=== PATIENT | male | born 2000 | race African-American/Black ===

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

== ENCOUNTER 2019-06-23 23:09 | Emergency (ER) | payer OTHER, SELFPAY ==
[2019-06-23] MEDS ORDERED: ONDANSETRON 4 MG/2 ML VIAL ONE (23:53)
[2019-06-23] MEDS ORDERED: MORPHINE 4 MG/ML SYR ONE (23:53)
--- NOTE | 2019-06-24 00:38 | EDPHYS ---
Physician Documentation [facility] Name: Fredis Buck Age: 18 yrs Sex: Male : 2000 Arrival Date: 06/23/2019 Time: 23:11 Bed 18 Private MD: ED Physician Liam Snyder HPI: 06/22 23:37 This 18 yrs old Black Male presents to ER via Ambulatory with complaints of Shoulder pm1 Injury. 23:37 The patient or guardian complains of pain, that is acute. right shoulder. Context: The pm1 problem was sustained at a sports field or court, resulted from stretching out his arm and bumping into another player, The patient notes a deformity. Onset: The symptoms/episode began/occurred just prior to arrival. Modifying factors: the symptoms are alleviated by nothing. The symptoms are aggravated by nothing. Associated signs and symptoms: Pertinent negatives: Numbness in right arm tingling. Severity of symptoms: in the emergency department the symptoms are unchanged. Treatment prior to arrival includes: no previous treatment. The patient has experienced a previous episode, left shoulder. It is unknown whether or not the patient has recently seen a physician. Historical: - Allergies: 23:25 No Known Allergies; ea - Home Meds: 23:25 None [Active]; ea - PMHx: 23:25 None; ea - PSHx: 23:25 Hernia repair; ea - Immunization history:: Adult Immunizations up to date. - Social history:: Smoking status: Patient denies any tobacco usage or history of. ROS: 23:37 Constitutional: Negative for fever, chills, and weight loss, Skin: Negative for injury, pm1 rash, and discoloration. 23:37 Neuro: Negative for headache, weakness, numbness, tingling, and seizure. 23:37 MS/extremity: Positive for deformity, pain, of the right shoulder. 23:37 All other systems are negative. Exam: 23:37 Constitutional: This is a well developed, well nourished patient who is awake, alert, pm1 and in no acute distress. Head/Face: Normocephalic, atraumatic. Chest/axilla: Normal chest wall appearance and motion. Nontender with no deformity. No lesions are appreciated. Cardiovascular: Regular rate and rhythm with a normal S1 and S2. No gallops, murmurs, or rubs. Normal PMI, no JVD. No pulse deficits. Respiratory: Lungs have equal breath sounds bilaterally, clear to auscultation and percussion. No rales, rhonchi or wheezes noted. No increased work of breathing, no retractions or nasal flaring. Abdomen/GI: Soft, non-tender, with normal bowel sounds. No distension or tympany. No guarding or rebound. No evidence of tenderness throughout. Back: No spinal tenderness. No costovertebral tenderness. Full range of motion. Skin: Warm, dry with normal turgor. Normal color with no rashes, no lesions, and no evidence of cellulitis. 23:37 Musculoskeletal/extremity: Extremities: grossly normal except: noted in the right shoulder: obvious dislocation, Pulses: noted to be 2+ in the right radial artery. Vital Signs: 23:19 BP 135 / 71; Pulse 79; Resp 18; Temp 98.7; Pulse Ox 97% ; Weight 61.23 kg; Height 5 ft. ea 6 in. (167.64 cm); Pain 8/10; 06/23 00:00 BP 125 / 69; Pulse 84; Resp 17; Pulse Ox 98% ; ah 03 23:19 Body Mass Index 21.79 (61.23 kg, 167.64 cm) ea Procedures: 00:33 Reduction: of the right shoulder, using Scapular manipulation with patient prone, pm1 Immobilized with shoulder immobilizer. Patient tolerated well. Post reduction film - reveals normal alignment. MDM: 06/22 23:34 Patient medically screened. pm1 06/23 00:33 Data reviewed: vital signs. Data interpreted: Pulse oximetry: on room air is 97 %. pm1 Interpretation: normal. 00:33 Counseling: I had a detailed discussion with the patient and/or guardian regarding: the pm1 historical points, exam findings, and any diagnostic results supporting the discharge/admit diagnosis, radiology results, the need for outpatient follow up, a orthopedic surgeon, to return to the emergency department if symptoms worsen or persist or if there are any questions or concerns that arise at home. 06/22 23:37 Order name: Shoulder Right (2 View) XRAY pm1 06/23 00:27 Order name: Shoulder (1 View) XRAY pm1 06/22 23:37 Order name: IV Saline Lock; Complete Time: 00:03 pm1 06/23 00:28 Order name: Sling: ezra agee; Complete Time: 00:54 pm1 Administered Medications: 00:02 Drug: morphine 2 mg Route: IVP; Site: left antecubital; mg2 00:54 Follow up: Response: No adverse reaction; Pain is decreased; RASS: Alert and Calm (0) ea 00:02 Drug: Zofran (Ondansetron) 4 mg Route: IVP; Site: left antecubital; mg2 00:54 Follow up: Response: No adverse reaction ea Disposition: 01:27 Co-signature as Attending Physician, Liam Snyder MD. pkjill Disposition: 06/24/19 00:36 Discharged to Home. Impression: Unspecified dislocation of right shoulder joint. - Condition is Stable. - Discharge Instructions: Shoulder Dislocation, How to Use a Shoulder Immobilizer. - Medication Reconciliation Form, Thank You Letter, Antibiotic Education, Prescription Opioid Use form. - Follow up: Emergency Department; When: As needed; Reason: Worsening of condition. Follow up: Private Physician; When: 2 - 3 days; Reason: Recheck today's complaints, Continuance of care, Re-evaluation by your physician. - Problem is new. - Symptoms have improved. Signatures: Dispatcher [employer] EDMS Liam Snyder MD MD pkl Nuno Cunha, BI TESTER BI TESTER pm1 Danica Reyes RN RN ea Gardose, Michele, RN RN mg2 Corrections: (The following items were deleted from the chart) 00:55 00:36 06/24/2019 00:36 Discharged to Home. Impression: Unspecified dislocation of right ea shoulder joint. Condition is Stable. Forms are Medication Reconciliation Form, Thank You Letter, Antibiotic Education, Prescription Opioid Use. Follow up: Emergency Department; When: As needed; Reason: Worsening of condition. Follow up: Private Physician; When: 2 - 3 days; Reason: Recheck today's complaints, Continuance of care, Re-evaluation by your physician. Problem is new. Symptoms have improved. pm1
--- NOTE | 2019-06-24 00:38 | ER ---
Nurse's Notes [facility] Name: Fredis Buck Age: 18 yrs Sex: Male : 2000 Arrival Date: 06/23/2019 Time: 23:11 Bed 18 Private MD: Diagnosis: Unspecified dislocation of right shoulder joint Presentation: 06/22 23:19 Chief complaint: Patient states: Reports he was playing basketball and he over extended ea his right shoulder. Pt reports his left shoulder has popped out of place before but he was able to "pop it back in place". Coronavirus screen: Patient denies fever greater than 100.4F, cough, shortness of breath, or difficulty breathing. Ebola Screen: No symptoms or risks identified at this time. Initial Sepsis Screen: Does the patient meet any 2 criteria? No. Patient's initial sepsis screen is negative. Does the patient have a suspected source of infection? No. Patient's initial sepsis screen is negative. Risk Assessment: Do you want to hurt yourself or someone else? Patient reports no desire to harm self or others. 23:19 Method Of Arrival: Ambulatory ea 23:19 Acuity: RICHELLE 3 ea Historical: - Allergies: 23:25 No Known Allergies; ea - Home Meds: 23:25 None [Active]; ea - PMHx: 23:25 None; ea - PSHx: 23:25 Hernia repair; ea - Immunization history:: Adult Immunizations up to date. - Social history:: Smoking status: Patient denies any tobacco usage or history of. Screenin:23 Abuse screen: Denies threats or abuse. Nutritional screening: No deficits noted. ea Tuberculosis screening: No symptoms or risk factors identified. Fall Risk None identified. Assessment: 23:26 General: Appears uncomfortable, Behavior is calm, cooperative, appropriate for age. ea Pain: Complains of pain in right arm. Neuro: Level of Consciousness is awake, alert, obeys commands, Oriented to person, place, time, situation. Cardiovascular: Patient's skin is warm and dry. Respiratory: Airway is patent Respiratory effort is even, unlabored, Respiratory pattern is regular, symmetrical. Derm: Skin is pink, warm \\T\\ dry. Musculoskeletal: Range of motion: limited in right shoulder. 06/23 00:36 Reassessment: Nuno COLON in room to manipulate shoulder back in place. Pt tolerated ah very well. No distress noted Patient states feeling better. 00:54 Reassessment: Patient and/or family updated on plan of care and expected duration. Pain ea level reassessed. Patient is alert, oriented x 3, equal unlabored respirations, skin warm/dry/pink. Discharge instruction given to patient, verbalized the understanding of instruction. Pt left ED ambulatory accompanied by family. Vital Signs: 06/22 23:19 BP 135 / 71; Pulse 79; Resp 18; Temp 98.7; Pulse Ox 97% ; Weight 61.23 kg; Height 5 ft. ea 6 in. (167.64 cm); Pain 8/10; 06/23 00:00 BP 125 / 69; Pulse 84; Resp 17; Pulse Ox 98% ; ah 06/22 23:19 Body Mass Index 21.79 (61.23 kg, 167.64 cm) ea ED Course: 06/22 23:11 Patient arrived in ED. cf2 23:23 Triage completed. ea 23:24 Patient has correct armband on for positive identification. Bed in low position. ea 23:24 Arm band placed on right wrist. Patient placed in an exam room, on a stretcher, on ea pulse oximetry. 23:34 Nuno Cunha NP is PHCP. pm1 23:34 Liam Snyder MD is Attending Physician. pm1 23:58 Inserted saline lock: 20 gauge in left antecubital area, using aseptic technique. mg2 06/23 00:10 Nurse Practitioner and/or Physician Party Coordinator to see patient. ah 00:47 Margie Oliva, RN is Primary Nurse. ah 00:47 No provider procedures requiring assistance completed. IV discontinued, intact, ah bleeding controlled, No redness/swelling at site. Pressure dressing applied. 00:59 Shoulder Right (2 View) XRAY In Process Unspecified. EDMS 01:00 Shoulder (1 View) XRAY In Process Unspecified. EDMS Administered Medications: 00:02 Drug: morphine 2 mg Route: IVP; Site: left antecubital; mg2 00:54 Follow up: Response: No adverse reaction; Pain is decreased; RASS: Alert and Calm (0) ea 00:02 Drug: Zofran (Ondansetron) 4 mg Route: IVP; Site: left antecubital; mg2 00:54 Follow up: Response: No adverse reaction ea Outcome: 00:36 Discharge ordered by . pm1 00:55 Discharged to home ambulatory. ea 00:55 Condition: stable 00:55 Discharge instructions given to patient, Instructed on discharge instructions, follow up and referral plans. Demonstrated understanding of instructions, follow-up care. 00:55 Patient left the ED. ea Signatures: Dispatcher [employer] EDMS Nuno Cunha NP [employer] CONSULTANT pm1 Danica Reyes RN RN ea Gardose, Michele RN MIKAYLA [facility] [place] 2 Margie Oliva RN MIKAYLA
[2019-06-24 01:36] VITALS: BP 125/69; O2SAT 98
[2019-06-24 01:38] VITALS: TEMP 98.7
--- NOTE | 2019-06-24 09:05 | RAD REPORT ---
EXAM DESCRIPTION: Shoulder Right 2 View - 06/24/2019 12:58 am CLINICAL HISTORY: DEFORMITY COMPARISON: Shoulder Right 2 View dated 05/26/2018 TECHNIQUE: Internal and external rotation views of the right shoulder were obtained. FINDINGS: Dislocation of the proximal right humerus is present medial and inferior to the glenoid. T his is typical anterior dislocation positioning. No fracture is seen. No clavicle fracture or AC join t separation. IMPRESSION: Anterior dislocation of the right humeral head without identifiable fracture.
--- NOTE | 2019-06-24 09:06 | RAD REPORT ---
EXAM DESCRIPTION: RAD - Shoulder 1 View - 06/24/2019 12:59 am FINDINGS: Internal and external rotation views obtained following reduction maneuvers. Humeral head has been reduced to anatomic position. No fracture finding. AC joint remains normal in appearance.
== END 2019-06-24 00:55 | disposition home or self-care (01) ==
LOC: ER 23:09
DX: S43.004A Unspecified dislocation of right shoulder joint, initial encounter (principal); W51.XXXA Accidental striking against or bumped into by another person, initial encounter; Y93.67 Activity, basketball; Y92.310 Basketball court as the place of occurrence of the external cause
CPT/HCPCS: 73020; 96374; 96375; 99284; J2405

== ENCOUNTER 2020-01-03 21:49 | Emergency (ER) | payer SELFPAY ==
[2020-01-03] MEDS ORDERED: KETOROLAC 30 MG/ML INJ ONE (23:04)
--- NOTE | 2020-01-03 23:48 | ER ---
Nurse's Notes [facility] Name: Fredis Buck Age: 19 yrs Sex: Male : 2000 Arrival Date: 01/03/2020 Time: 21:52 Bed 14 Private MD: Diagnosis: Epididymitis Presentation: 01/02 21:57 Chief complaint: Patient states: L groin pain x 1 week. L inguinal pain and swelling. ca1 Denies scrotal pain and swelling. Denies urinary symptoms. Denies injury. Coronavirus screen: Client denies travel out of the [place] in the last 14 days. At this time, the client does not indicate any symptoms associated with coronavirus-19. Ebola Screen: Patient negative for fever greater than or equal to 101.5 degrees Fahrenheit, and additional compatible Ebola Virus Disease symptoms Patient denies exposure to infectious person. Patient denies travel to an Ebola-affected area in the 21 days before illness onset. No symptoms or risks identified at this time. Initial Sepsis Screen: Does the patient meet any 2 criteria? No. Patient's initial sepsis screen is negative. Does the patient have a suspected source of infection? No. Patient's initial sepsis screen is negative. Risk Assessment: Do you want to hurt yourself or someone else? Patient reports no desire to harm self or others. Onset of symptoms was January 03, 2020. 21:57 Method Of Arrival: Ambulatory ca1 21:57 Acuity: RICHELLE 4 ca1 Historical: - Allergies: 22:02 No Known Allergies; ca1 - Home Meds: 22:02 None [Active]; ca1 - PMHx: 22:02 None; ca1 - PSHx: 22:02 None; ca1 - Immunization history:: Adult Immunizations not up to date. - Social history:: Smoking status: Reported history of juuling and/or vaping. Screenin:37 Abuse screen: Denies threats or abuse. Nutritional screening: No deficits noted. jd3 Tuberculosis screening: No symptoms or risk factors identified. Fall Risk Ambulatory Aid- None/Bed Rest/Nurse Assist (0 pts). Gait- Normal/Bed Rest/Wheelchair (0 pts) Mental Status- Oriented to own ability (0 pts). Total Lynn Fall Scale indicates No Risk (0-24 pts). Assessment: 22:05 General: Appears in no apparent distress. uncomfortable, Behavior is calm, cooperative, jd3 appropriate for age. Pain: Complains of pain in groin Quality of pain is described as aching. Neuro: Level of Consciousness is awake, alert, obeys commands, Oriented to person, place, time, situation. Cardiovascular: Capillary refill < 3 seconds Patient's skin is warm and dry. Respiratory: Airway is patent Respiratory effort is even, unlabored, Respiratory pattern is regular, symmetrical, Denies cough, shortness of breath. GI: No signs and/or symptoms were reported involving the gastrointestinal system. : No signs and/or symptoms were reported regarding the genitourinary system. EENT: No signs and/or symptoms were reported regarding the EENT system. Derm: Skin is intact, Skin is dry, Skin is normal, Skin temperature is warm. Musculoskeletal: Circulation, motion, and sensation intact. Range of motion: intact in all extremities. 23:37 Reassessment: Patient appears in no apparent distress at this time. No changes from jd3 previously documented assessment. Patient and/or family updated on plan of care and expected duration. Pain level reassessed. Patient is alert, oriented x 3, equal unlabored respirations, skin warm/dry/pink. 01/03 00:00 Reassessment: Patient and/or family updated on plan of care and expected duration. Pain ea level reassessed. Patient is alert, oriented x 3, equal unlabored respirations, skin warm/dry/pink. Discharge instruction given to patient, verbalized the understanding of instruction. Pt left ED ambulatory tolerating well. Vital Signs: 01/02 21:57 BP 145 / 98; Pulse 85; Resp 16; Temp 98.1(TE); Pulse Ox 98% on R/A; Weight 63.5 kg (R); ca1 Height 5 ft. 6 in. (167.64 cm) (R); Pain 9/10; 23:36 BP 121 / 71; Pulse 94; Resp 17 S; Pulse Ox 97% on R/A; jd3 21:57 Body Mass Index 22.60 (63.50 kg, 167.64 cm) ca1 ED Course: 21:52 Patient arrived in ED. bp1 22:01 Triage completed. ca1 22:02 Arm band placed on right wrist. ca1 22:05 Stepan Orr MD is Attending Physician. [facility] 23:34 Dc, Xavier, RN is Primary Nurse. jd3 23:38 Patient has correct armband on for positive identification. Placed in gown. Bed in low jd3 position. Call light in reach. Side rails up X 1. Adult w/ patient. Pulse ox on. NIBP on. 23:41 Ultrasound completed. Patient tolerated well. Notified ED Physician ramiro. sg3 23:45 US Scrotum Testicles In Process Unspecified. EDMS 23:47 Hollie Summers MD is Referral Physician. [facility] 01/03 00:02 No provider procedures requiring assistance completed. Patient did not have IV access ea during this emergency room visit. Administered Medications: 01/02 22:56 Drug: TORadol 60 mg Route: IM; Site: left gluteus; ll2 01/03 00:01 Follow up: Response: No adverse reaction ll2 01/02 23:51 Drug: Rocephin (cefTRIAXone) 250 mg Route: IM; Site: right gluteus; ea 01/03 00:01 Follow up: Response: No adverse reaction ll2 01/02 23:56 Drug: AZITHromycin 1 grams Route: PO; ea 01/03 00:01 Follow up: Response: No adverse reaction ll2 Outcome: 01/02 23:48 Discharge ordered by . [facility] 01/03 00:03 Discharged to home ambulatory, with family. ea Condition: stable Discharge instructions given to patient, Instructed on discharge instructions, follow up and referral plans. medication usage, Demonstrated understanding of instructions, follow-up care, medications, Prescriptions given X 2. 00:03 Patient left the ED. ea Signatures: Dispatcher [employer] EDCT Danica Reyes RN RN ea Davies, Jonathon, RN RN jd3 Selena Dover sg3 Lyndsey Soto RN RN ca1 Yanci Alex RN RN ll2 Marine Day Maurice, MD MD [facility]
--- NOTE | 2020-01-03 23:48 | EDPHYS ---
Physician Documentation [facility] Name: Fredis Buck Age: 19 yrs Sex: Male : 2000 Arrival Date: 01/03/2020 Time: 21:52 Bed 14 Private MD: ED Physician Stepan Orr HPI: 01/02 22:28 This 19 yrs old Black Male presents to ER via Ambulatory with complaints of Groin Pain. mh7 22:28 The patient presents with scrotal pain, of the left side, without swelling, without mh7 erythema. Onset: The symptoms/episode began/occurred 1 week(s) ago. Modifying factors: The symptoms are alleviated by nothing, the symptoms are aggravated by movement. Associated signs and symptoms: Pertinent negatives: abdominal pain, constipation, diarrhea, dysuria, fever, hematuria, nausea, vomiting. Severity of symptoms: At their worst the symptoms were moderate, yesterday, in the emergency department the symptoms have improved, moderately. Historical: - Allergies: 22:02 No Known Allergies; ca1 - Home Meds: 22:02 None [Active]; ca1 - PMHx: 22:02 None; ca1 - PSHx: 22:02 None; ca1 - Immunization history:: Adult Immunizations not up to date. - Social history:: Smoking status: Reported history of juuling and/or vaping. ROS: 22:28 Constitutional: Negative for fever, chills, and weight loss, Eyes: Negative for injury, mh7 pain, redness, and discharge, ENT: Negative for injury, pain, and discharge, Neck: Negative for injury, pain, and swelling, Cardiovascular: Negative for chest pain, palpitations, and edema, Respiratory: Negative for shortness of breath, cough, wheezing, and pleuritic chest pain, Abdomen/GI: Negative for abdominal pain, nausea, vomiting, diarrhea, and constipation, Back: Negative for injury and pain, MS/Extremity: Negative for injury and deformity, Skin: Negative for injury, rash, and discoloration, Neuro: Negative for headache, weakness, numbness, tingling, and seizure, Psych: Negative for depression, anxiety, suicide ideation, homicidal ideation, and hallucinations, Allergy/Immunology: Negative for hives, rash, and allergies, Endocrine: Negative for neck swelling, polydipsia, polyuria, polyphagia, and marked weight changes, Hematologic/Lymphatic: Negative for swollen nodes, abnormal bleeding, and unusual bruising. Exam: 22:28 Constitutional: This is a well developed, well nourished patient who is awake, alert, mh7 and in no acute distress. Head/Face: Normocephalic, atraumatic. Eyes: Pupils equal round and reactive to light, extra-ocular motions intact. Lids and lashes normal. Conjunctiva and sclera are non-icteric and not injected. Cornea within normal limits. Periorbital areas with no swelling, redness, or edema. Neck: Trachea midline, no thyromegaly or masses palpated, and no cervical lymphadenopathy. Supple, full range of motion without nuchal rigidity, or vertebral point tenderness. No Meningismus. Chest/axilla: Normal chest wall appearance and motion. Nontender with no deformity. No lesions are appreciated. Cardiovascular: Regular rate and rhythm with a normal S1 and S2. No gallops, murmurs, or rubs. Normal PMI, no JVD. No pulse deficits. Respiratory: Lungs have equal breath sounds bilaterally, clear to auscultation and percussion. No rales, rhonchi or wheezes noted. No increased work of breathing, no retractions or nasal flaring. Abdomen/GI: Soft, non-tender, with normal bowel sounds. No distension or tympany. No guarding or rebound. No evidence of tenderness throughout. Back: No spinal tenderness. No costovertebral tenderness. Full range of motion. Skin: Warm, dry with normal turgor. Normal color with no rashes, no lesions, and no evidence of cellulitis. MS/ Extremity: Pulses equal, no cyanosis. Neurovascular intact. Full, normal range of motion. Neuro: Awake and alert, GCS 15, oriented to person, place, time, and situation. Cranial nerves II-XII grossly intact. Motor strength 5/5 in all extremities. Sensory grossly intact. Cerebellar exam normal. Normal gait. Psych: Awake, alert, with orientation to person, place and time. Behavior, mood, and affect are within normal limits. 22:28 : 22:55 : CVA tenderness, is absent, Male external genitalia: Circumcision noted. swelling: mh7 of the left testicle is noted, that is mild, tenderness, of the left testicle is noted, of the epididymis area, that is mild, Bladder: is normal, Rectal exam: is refused by patient or guardian. Vital Signs: 21:57 BP 145 / 98; Pulse 85; Resp 16; Temp 98.1(TE); Pulse Ox 98% on R/A; Weight 63.5 kg (R); ca1 Height 5 ft. 6 in. (167.64 cm) (R); Pain 9/10; 23:36 BP 121 / 71; Pulse 94; Resp 17 S; Pulse Ox 97% on R/A; jd3 21:57 Body Mass Index 22.60 (63.50 kg, 167.64 cm) ca1 MDM: 22:17 Patient medically screened. [facility] 23:45 Differential diagnosis: UTI, urethritis, Epididymitis, orchitis, testicular torsion. [facility] Data reviewed: vital signs, nurses notes, lab test result(s), urinalysis, radiologic studies, ultrasound. Data interpreted: Pulse oximetry: on room air is 97 %. Interpretation: normal. Counseling: I had a detailed discussion with the patient and/or guardian regarding: the historical points, exam findings, and any diagnostic results supporting the discharge/admit diagnosis, lab results, radiology results, the need for outpatient follow up, a urologist, to return to the emergency department if symptoms worsen or persist or if there are any questions or concerns that arise at home. Response to treatment: the patient's symptoms have markedly improved after treatment. 01/02 23:50 Order name: Urine Culture [facility] 01/02 23:50 Order name: Gc Culture [facility] 01/02 22:18 Order name: US Scrotum Testicles [facility] 01/02 22:18 Order name: Urine Dipstick-Ancillary (obtain specimen); Complete Time: 23:20 [facility] Administered Medications: 22:56 Drug: TORadol 60 mg Route: IM; Site: left gluteus; ll2 01/03 00:01 Follow up: Response: No adverse reaction ll2 01/02 23:51 Drug: Rocephin (cefTRIAXone) 250 mg Route: IM; Site: right gluteus; ea 01/03 00:01 Follow up: Response: No adverse reaction ll2 01/02 23:56 Drug: AZITHromycin 1 grams Route: PO; ea 01/03 00:01 Follow up: Response: No adverse reaction 2 Disposition: 01/03/20 23:48 Discharged to Home. Impression: Epididymitis. - Condition is Stable. - Discharge Instructions: Epididymitis. - Prescriptions for Ibuprofen 600 mg Oral Tablet - take 1 tablet by ORAL route every 8 hours As needed take with food; 15 tablet. Cipro 500 mg Oral Tablet - take 1 tablet by ORAL route every 12 hours for 7 days; 14 tablet. - Medication Reconciliation Form, Thank You Letter, Antibiotic Education, Prescription Opioid Use form. - Follow up: Hollie Summers MD; When: 1 - 2 days; Reason: Worsening of condition, Recheck today's complaints. - Problem is new. - Symptoms have improved. Signatures: Dispatcher [employer] EDMS Danica Reyes RN Lyndsey Sherman ea RN RN Yanci Ryan RN RN 2 Stepan Orr MD MD mh7 Corrections: (The following items were deleted from the chart) 00:03 01/02 23:48 01/03/2020 23:48 Discharged to Home. Impression: Epididymitis. Condition is ea Stable. Forms are Medication Reconciliation Form, Thank You Letter, Antibiotic Education, Prescription Opioid Use. Follow up: Hollie Summers; When: 1 - 2 days; Reason: Worsening of condition, Recheck today's complaints. Problem is new. Symptoms have improved. mh7
[2020-01-04] MEDS ORDERED: AZITHROMYCIN 1 GM PACKET ONE (00:01)
[2020-01-04] MEDS ORDERED: CEFTRIAXONE 250 MG/VIAL ONE (00:01)
[2020-01-04 00:29] VITALS: TEMP 98.1
[2020-01-04 00:30] VITALS: BP 121/71; O2SAT 97
--- NOTE | 2020-01-04 11:34 | RAD REPORT ---
EXAM DESCRIPTION: US - Scrotum Testicles - 01/03/2020 11:45 pm CLINICAL HISTORY: PAIN Left-sided testicular pain COMPARISON: No comparisons FINDINGS: The right testicle 3.8 x 2.5 x 1.9 cm. No intratesticular masses or evidence of testicular torsion. The left testicle 3.0 x 2.4 x 2.3 cm. No intratesticular masses or evidence of testicular torsion. The left epididymis appears enlarged with increased blood flow. Small amount of fluid is seen in the scrotal sac. IMPRESSION: No intratesticular mass or evidence of testicular torsion. Left-sided epididymitis.
== END 2020-01-04 00:03 | disposition home or self-care (01) ==
LOC: ER 21:49
DX: N45.1 Epididymitis (principal); Z87.891 Personal history of nicotine dependence
CPT/HCPCS: 76870; 87086; 87088; 96372; 99284; J0696

== ENCOUNTER 2020-02-09 12:31 | Emergency (ER) | payer SELFPAY ==
[2020-02-09] MEDS ORDERED: DIAZEPAM 5 MG TABLET ONE (14:05)
[2020-02-09] MEDS ORDERED: MORPHINE 4 MG/ML SYR ONE (14:06)
--- NOTE | 2020-02-09 14:19 | ER ---
Nurse's Notes [facility] Name: Fredis Buck Age: 19 yrs Sex: Male : 2000 Arrival Date: 02/09/2020 Time: 12:32 Bed 3 Private MD: Radha Hodges Diagnosis: Recurrent dislocation, right shoulder Presentation: 02/08 12:42 Chief complaint: Spouse and/or significant other states: GF: he basically cart wheeled ca1 out of bed and popped his R shoulder 45 minutes [employer]. Hx of of R shoulder dislocation. Coronavirus screen: Client denies travel out of the [place] in the last 14 days. At this time, the client does not indicate any symptoms associated with coronavirus-19. Ebola Screen: Patient negative for fever greater than or equal to 101.5 degrees Fahrenheit, and additional compatible Ebola Virus Disease symptoms Patient denies exposure to infectious person. Patient denies travel to an Ebola-affected area in the 21 days before illness onset. No symptoms or risks identified at this time. Initial Sepsis Screen: Does the patient meet any 2 criteria? No. Patient's initial sepsis screen is negative. Does the patient have a suspected source of infection? No. Patient's initial sepsis screen is negative. Risk Assessment: Do you want to hurt yourself or someone else? Patient reports no desire to harm self or others. Onset of symptoms was February 09, 2020. 12:42 Method Of Arrival: Ambulatory ca1 12:42 Acuity: RICHELLE 4 ca1 12:45 Acuity: RICHELLE 3 iw Triage Assessment: 12:45 Injury Description: Deformity sustained to right shoulder. bp 12:47 General: Appears in no apparent distress. uncomfortable, Behavior is calm, cooperative, bp appropriate for age. Pain: Complains of pain in anterior aspect of right shoulder. EENT: No deficits noted. Neuro: No deficits noted. Cardiovascular: No deficits noted. Respiratory: No deficits noted. GI: No signs and/or symptoms were reported involving the gastrointestinal system. : No signs and/or symptoms were reported regarding the genitourinary system. Derm: No deficits noted. Musculoskeletal: Circulation, motion, and sensation intact. Range of motion: limited in right shoulder Bony deformity noted of anterior aspect of right shoulder. Historical: - Allergies: 12:45 No Known Allergies; ca1 - Home Meds: 12:45 None [Active]; ca1 - PMHx: 12:45 None; ca1 - PSHx: 12:45 None; ca1 - Immunization history:: Adult Immunizations up to date, Flu vaccine is not up to date. - Social history:: Smoking status: Patient denies any tobacco usage or history of. Screenin:45 Abuse screen: Denies threats or abuse. Denies injuries from another. Nutritional bp screening: No deficits noted. Tuberculosis screening: No symptoms or risk factors identified. Fall Risk None identified. Assessment: 12:50 General: SEE TRIAGE NOTE. bp 13:45 Reassessment: LMP AT B/S FOR SHOULDER REDUCTION Patient states feeling better. Patient bp states symptoms have improved. 14:44 Reassessment: PT D/C HOME AMBULATORY WITH FAMILY, DX WITH ACUTE SHOULDER DISLOCATION. bp Vital Signs: 12:42 BP 135 / 55; Pulse 57; Resp 16 S; Temp 97.2(TE); Pulse Ox 100% on R/A; Weight 63.5 kg ca1 (R); Height 5 ft. 6 in. (167.64 cm); Pain 9/10; 14:45 BP 127 / 61; Pulse 61; Resp 17; Temp 97.5; Pulse Ox 100% ; bp 12:42 Body Mass Index 22.60 (63.50 kg, 167.64 cm) ca1 ED Course: 12:32 Patient arrived in ED. ag5 12:32 Radha Hodges MD is Private Physician. ag5 12:41 Kanika Aguilar FNP-C is [facility]. snw 12:41 Zak Gastelum MD is Attending Physician. snw 12:44 Triage completed. ca1 12:45 Arm band placed on right wrist. ca1 12:46 Rex De Santiago, MIKAYLA is Primary Nurse. bp 13:13 Shoulder Right (2 View) XRAY In Process Unspecified. EDMS 14:18 Judson Worrell MD is Referral Physician. snw 14:45 Patient has correct armband on for positive identification. Bed in low position. Call bp light in reach. Side rails up X2. Adult w/ patient. 14:45 No provider procedures requiring assistance completed. Patient did not have IV access bp during this emergency room visit. Administered Medications: 13:45 Drug: morphine 4 mg Route: IM; Site: left deltoid; bp 14:46 Follow up: Response: Pain is decreased bp 13:45 Drug: Valium 10 mg Route: PO; bp 14:46 Follow up: Response: Marked relief of symptoms bp Outcome: 14:19 Discharge ordered by MD. mcmullen 14:45 Discharged to home ambulatory, with family. bp 14:45 Condition: stable 14:45 Discharge instructions given to patient, Instructed on discharge instructions, follow up and referral plans. medication usage, Demonstrated understanding of instructions, follow-up care, medications, Prescriptions given X 2. 14:46 Patient left the ED. bp Signatures: Dispatcher [employer] EDMS Kanika Aguilar, OPERATIONS AND MAINTENANCE SPECIALIST-C OPERATIONS AND MAINTENANCE SPECIALIST-Csnw Jazzy Arreguin RN RN iw Peltier, Brian, RN RN bp Acob, Cheryl, RN RN ca1 Gaskin, Ajare ag5
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
--- NOTE | 2020-02-09 14:43 | RAD REPORT ---
EXAM DESCRIPTION: Shoulder Right 2 View - 02/09/2020 1:13 pm CLINICAL HISTORY: PAIN COMPARISON: Shoulder Right 2 View dated 06/23/2019 TECHNIQUE: Internal rotation and scapula Y-views obtained. FINDINGS: Right humeral head is dislocated medial and inferior to the bony glenoid. AC joint is nor mal in appearance. No fracture change identified. IMPRESSION: Right humerus anterior dislocation. No fracture identified.
[2020-02-09 15:24] VITALS: BP 135/55; TEMP 97.2; O2SAT 100
== END 2020-02-09 14:46 | disposition home or self-care (01) ==
LOC: ER 12:31
DX: M24.411 Recurrent dislocation, right shoulder (principal)
CPT/HCPCS: 96372; 99283

== ENCOUNTER 2020-03-13 14:47 | Emergency (ER) | payer SELFPAY ==
--- NOTE | 2020-03-13 16:36 | ER ---
Nurse's Notes [facility] Name: Fredis Buck Age: 19 yrs Sex: Male : 2000 Arrival Date: 03/13/2020 Time: 14:49 Bed 13 Private MD: Diagnosis: Recurrent dislocation, right shoulder Presentation: 03/13 15:51 Chief complaint: Patient states: Right shoulder dislocated while working out about 2 jl7 hours ago. Coronavirus screen: Client denies travel out of the [place] in the last 14 days. At this time, the client does not indicate any symptoms associated with coronavirus-19. Ebola Screen: No symptoms or risks identified at this time. Initial Sepsis Screen: Does the patient meet any 2 criteria? No. Patient's initial sepsis screen is negative. Does the patient have a suspected source of infection? No. Patient's initial sepsis screen is negative. Risk Assessment: Do you want to hurt yourself or someone else? Patient reports no desire to harm self or others. Onset of symptoms was March 13, 2020 at 14:00. Care prior to arrival: None. 15:51 Method Of Arrival: Ambulatory jl7 15:51 Acuity: RICHELLE 4 jl7 Triage Assessment: 15:53 General: Appears in no apparent distress. uncomfortable, Behavior is calm, cooperative, jl7 appropriate for age. Pain: Complains of pain in posterior aspect of right shoulder Pain currently is 8 out of 10 on a pain scale. Historical: - Allergies: 15:53 No Known Allergies; jl7 - Home Meds: 15:53 None [Active]; jl7 - PMHx: 15:53 None; jl7 - PSHx: 15:53 None; jl7 - Immunization history:: Adult Immunizations unknown. - Social history:: Smoking status: Patient denies any tobacco usage or history of. Screenin:02 Abuse screen: Denies threats or abuse. Denies injuries from another. Nutritional zb screening: No deficits noted. Tuberculosis screening: No symptoms or risk factors identified. Fall Risk None identified. Assessment: 15:55 Reassessment: Pt requesting for a provider to pop his shoulder back in without pain so jl7 he doesn't have to wait anymore. ISAIAH Reina assessed pt in triage and explained he could attempt to but cannot medicate with narcotics since we do not have an ER bed to put the pt in. Pt and pt's friend do not want to wait. Placed pt back in lobby and informed of wait time. 16:20 Reassessment: Pt called from lobby, no answer, unable to locate and no answer oh phone jl7 number provided. Charge nurse notified. 16:58 General: Appears in no apparent distress. comfortable, Behavior is calm, cooperative, zb appropriate for age. Pain: Denies pain. Neuro: Level of Consciousness is awake, alert, obeys commands, Oriented to person, place, time, situation. Cardiovascular: Capillary refill < 3 seconds in bilateral fingers Patient's skin is warm and dry. Respiratory: Airway is patent Respiratory effort is even, unlabored, Respiratory pattern is regular, symmetrical. GI: Abdomen is flat, distended. : No signs and/or symptoms were reported regarding the genitourinary system. EENT: Derm: Skin is intact, is healthy with good turgor. Musculoskeletal: Capillary refill < 3 seconds, in bilateral fingers. Range of motion: pt seen by ECP prior to assessment. reported limited ROM to Right shoulder. no discomfort noted at the moment. Vital Signs: 15:51 BP 122 / 67; Pulse 47; Resp 17; Temp 98.1; Pulse Ox 100% ; Weight 68.04 kg; Height 5 jl7 ft. 6 in. (167.64 cm); Pain 8/10; 17:00 BP 118 / 54; Pulse 48; Resp 16; Pulse Ox 99% on R/A; Pain 0/10; zb 15:51 Body Mass Index 24.21 (68.04 kg, 167.64 cm) jl7 ED Course: 14:49 Patient arrived in ED. ag5 15:53 Triage completed. jl7 15:53 Arm band placed on right wrist. jl7 16:35 Remi Anderson MD is Attending Physician. aa5 16:43 Nuno Cunha NP is PHCP. pm1 16:52 Judson Worrell MD is Referral Physician. pm1 17:02 No provider procedures requiring assistance completed. Patient did not have IV access zb during this emergency room visit. 17:03 Patient has correct armband on for positive identification. Bed in low position. Call zb light in reach. Side rails up X 1. 17:03 Shoulder immobilizer applied on right shoulder. zb 17:11 Shoulder Right (2 View) XRAY In Process Unspecified. EDMS 17:13 Jessica Powers, RN is Primary Nurse. zb Administered Medications: No medications were administered Outcome: 16:35 Patient left the ED. aa5 16:52 Discharge ordered by MD. pm1 17:13 Discharged to home ambulatory, with friend. zb 17:13 Condition: stable 17:13 Discharge instructions given to patient, Instructed on discharge instructions, follow up and referral plans. medication usage, Demonstrated understanding of instructions, follow-up care, sling usage 17:15 Patient left the ED. zb Signatures: Dispatcher [employer] EDKY Helen Jeronimo, RN RN aa5 Nuno Cunha, BRUSH TRIMMING MACHINE SETTER BRUSH TRIMMING MACHINE SETTER pm1 Lilo Cunningham RN RN jl7 Memo Knutson ag5 Jessica Powers, MIKAYLA RN zb Corrections: (The following items were deleted from the chart) 17:11 16:48 Helen Jeronimo, RN is Primary Nurse. aa5 aa5
--- NOTE | 2020-03-13 16:53 | EDPHYS ---
Physician Documentation [facility] Name: Fredis Buck Age: 19 yrs Sex: Male : 2000 Arrival Date: 03/13/2020 Time: 14:49 Bed 13 Private MD: ED Physician Remi Anderson HPI: 03/13 17:11 This 19 yrs old Black Male presents to ER via Ambulatory with complaints of Shoulder pm1 Pain - dislocation. 17:11 The patient or guardian complains of right shoulder dislocation. right shoulder. pm1 Context: The problem was sustained at a Gym, resulted from Exercising, The patient notes a deformity. Onset: The symptoms/episode began/occurred 3 hour(s) ago. Modifying factors: the symptoms are alleviated by. Associated signs and symptoms: Pertinent negatives: Numbness in right arm tingling. Severity of symptoms: in the emergency department the symptoms are unchanged. Treatment prior to arrival includes: no previous treatment. The patient has experienced similar episodes in the past, several times. The patient has not recently seen a physician. Historical: - Allergies: 15:53 No Known Allergies; jl7 - Home Meds: 15:53 None [Active]; jl7 - PMHx: 15:53 None; jl7 - PSHx: 15:53 None; jl7 - Immunization history:: Adult Immunizations unknown. - Social history:: Smoking status: Patient denies any tobacco usage or history of. ROS: 17:11 Constitutional: Negative for fever, chills, and weight loss. pm1 17:11 Cardiovascular: Negative for chest pain, palpitations, and edema, Respiratory: Negative for shortness of breath, cough, wheezing, and pleuritic chest pain. 17:11 Skin: Negative for injury, rash, and discoloration, Neuro: Negative for headache, weakness, numbness, tingling, and seizure. 17:11 MS/extremity: Positive for decreased range of motion, deformity, pain, of the right shoulder. Exam: 17:11 Constitutional: This is a well developed, well nourished patient who is awake, alert, pm1 and in no acute distress. Head/Face: Normocephalic, atraumatic. 17:11 Skin: Warm, dry with normal turgor. Normal color with no rashes, no lesions, and no evidence of cellulitis. 17:11 Cardiovascular: Exam negative for acute changes, Rate: normal, Rhythm: regular, Pulses: no pulse deficits are appreciated. 17:11 Respiratory: Exam negative for acute changes, respiratory distress, shortness of breath. 17:11 Musculoskeletal/extremity: Extremities: grossly normal except: noted in the right shoulder: obvious right humerus anterior dislocation reduced with patient prone, right arm hanging down with scapular massage and traction to right arm, Circulation is intact in all extremities. 17:11 Neuro: Exam negative for acute changes, Orientation: is normal, Motor: is normal, moves all fours, Gait: is steady, at a normal pace, without difficulty. Vital Signs: 15:51 BP 122 / 67; Pulse 47; Resp 17; Temp 98.1; Pulse Ox 100% ; Weight 68.04 kg; Height 5 jl7 ft. 6 in. (167.64 cm); Pain 8/10; 17:00 BP 118 / 54; Pulse 48; Resp 16; Pulse Ox 99% on R/A; Pain 0/10; zb 15:51 Body Mass Index 24.21 (68.04 kg, 167.64 cm) jl7 Procedures: 16:51 Reduction: of the right shoulder, using scapular massage and traction to right arm, pm1 Immobilized with sling, Patient tolerated well. 17:11 Reduction: Post reduction film - reveals normal alignment. pm1 MDM: 16:43 Patient medically screened. pm1 16:51 Data reviewed: vital signs. Data interpreted: Pulse oximetry: on room air is 100 %. pm1 Interpretation: normal. Counseling: I had a detailed discussion with the patient and/or guardian regarding: the historical points, exam findings, and any diagnostic results supporting the discharge/admit diagnosis, the need for outpatient follow up, for definitive care, a orthopedic surgeon, to return to the emergency department if symptoms worsen or persist or if there are any questions or concerns that arise at home. 03/13 16:51 Order name: Shoulder Right (2 View) XRAY pm1 03/13 16:51 Order name: Sling; Complete Time: 16:58 pm1 Administered Medications: No medications were administered Disposition: 03/13/20 16:52 Discharged to Home. Impression: Recurrent dislocation, right shoulder. - Condition is Stable. - Discharge Instructions: Shoulder Dislocation, How to Use a Sling. - Medication Reconciliation Form, Thank You Letter, Antibiotic Education, Prescription Opioid Use form. - Follow up: Emergency Department; When: As needed; Reason: Worsening of condition. Follow up: Judson Worrell MD; When: 2 - 3 days; Reason: Recheck today's complaints, Continuance of care, Re-evaluation by your physician. - Problem is new. - Symptoms have improved. Addendum: 03/14/2020 17:53 Co-signature as Attending Physician, Remi Anderson MD I agree with the assessment and c keys plan of care. Signatures: Dispatcher [employer] EDRemi Hernandez MD MD cha Calderon, Audri RN RN aa5 Nuno Cunha, DIPLOMA MEDICAL ASSISTANT DIPLOMA MEDICAL ASSISTANT pm1 Lilo Cunningham RN RN jl7 Jessica Powers RN RN zb Corrections: (The following items were deleted from the chart) 03/13 16:42 16:35 03/13/2020 16:35 Patient left the facility post triage evaluation and consult. aa5 Reason stated they are leaving due to wait time. aa5 17:15 16:52 03/13/2020 16:52 Discharged to Home. Impression: Recurrent dislocation, right zb shoulder. Condition is Stable. Forms are Medication Reconciliation Form, Thank You Letter, Antibiotic Education, Prescription Opioid Use. Follow up: Emergency Department; When: As needed; Reason: Worsening of condition. Follow up: Dr. Judson Worrell; When: 2 - 3 days; Reason: Recheck today's complaints, Continuance of care, Re-evaluation by your physician. Problem is new. Symptoms have improved. pm1
--- NOTE | 2020-03-13 17:24 | RAD REPORT ---
EXAM DESCRIPTION: RAD - Shoulder Right 2 View - 03/13/2020 5:11 pm CLINICAL HISTORY: Right shoulder pain FINDINGS: No fracture or dislocation is seen.
[2020-03-17 17:33] VITALS: TEMP 98.1
[2020-03-17 18:02] VITALS: BP 118/54; O2SAT 99
== END 2020-03-13 17:15 | disposition home or self-care (01) ==
LOC: ER 14:47
PROC: 0RSJXZZ Reposition Right Shoulder Joint, External Approach (ICD-10-PCS; principal; 2020-03-13)
DX: M24.411 Recurrent dislocation, right shoulder (principal)
CPT/HCPCS: 99283

== ENCOUNTER 2020-06-22 12:56 | Emergency (ER) | payer SELFPAY ==
--- NOTE | 2020-06-22 14:26 | RAD REPORT ---
EXAM DESCRIPTION: RAD - Shoulder Right 2 View - 06/22/2020 2:13 pm CLINICAL HISTORY: shoulder reduction Pain and swelling COMPARISON: Shoulder Right 2 View dated 03/13/2020 FINDINGS: No fracture or dislocation is seen.
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
== END 2020-06-22 14:54 | disposition home or self-care (01) ==
LOC: ER 12:56
PROC: 0RSJXZZ Reposition Right Shoulder Joint, External Approach (ICD-10-PCS; principal; 2020-06-22)
DX: S43.084A Other dislocation of right shoulder joint, initial encounter (principal); X58.XXXA Exposure to other specified factors, initial encounter; Y93.9 Activity, unspecified; Y92.9 Unspecified place or not applicable
CPT/HCPCS: 99282

== ENCOUNTER 2020-09-09 16:21 | Emergency (ER) | payer SELFPAY ==
--- NOTE | 2020-09-09 16:42 | EDPHYS ---
Physician Documentation [facility] Name: Fredis Buck Age: 20 yrs Sex: Male : 2000 Arrival Date: 09/09/2020 Time: 16:24 Bed 17 Private MD: None, None ED Physician Zak Gastelum HPI: 09/09 17:15 This 20 yrs old Black Male presents to ER via Ambulatory with complaints of Shoulder jr8 Injury. 17:15 The patient or guardian complains of decreased range of motion, deformity. right jr8 shoulder. Context: The problem was sustained at a sports field or court, resulted from reaching down for ball, The patient experiences decreased range of motion, The patient notes a deformity, an anterior fullness, a deltoid step-off. Onset: The symptoms/episode began/occurred acutely, today. Modifying factors: the symptoms are alleviated by remaining still, The symptoms are aggravated by movement. Associated signs and symptoms: The patient has no apparent associated signs or symptoms. Severity of symptoms: At their worst the symptoms were moderate, in the emergency department the symptoms are unchanged. The patient has experienced similar episodes in the past, a few times. The patient has not recently seen a physician. Historical: - Allergies: 16:34 No Known Allergies; tw2 - Home Meds: 16:34 None [Active]; tw2 - PMHx: 16:34 None; tw2 - PSHx: 16:34 None; tw2 - Immunization history:: Adult Immunizations. - Social history:: Smoking status: . ROS: 17:15 Constitutional: Negative for fever, chills, and weight loss. jr8 17:15 MS/extremity: Positive for decreased range of motion, deformity, pain, of the right shoulder. 17:15 All other systems are negative. Exam: 17:15 Neck: Trachea midline, no thyromegaly or masses palpated, and no cervical jr8 lymphadenopathy. Supple, full range of motion without nuchal rigidity, or vertebral point tenderness. No Meningismus. Chest/axilla: Normal chest wall appearance and motion. Nontender with no deformity. No lesions are appreciated. Cardiovascular: Regular rate and rhythm with a normal S1 and S2. No gallops, murmurs, or rubs. Normal PMI, no JVD. No pulse deficits. Respiratory: Lungs have equal breath sounds bilaterally, clear to auscultation and percussion. No rales, rhonchi or wheezes noted. No increased work of breathing, no retractions or nasal flaring. Abdomen/GI: Soft, non-tender, with normal bowel sounds. No distension or tympany. No guarding or rebound. No evidence of tenderness throughout. Skin: Warm, dry with normal turgor. Normal color with no rashes, no lesions, and no evidence of cellulitis. Neuro: Awake and alert, GCS 15, oriented to person, place, time, and situation. Cranial nerves II-XII grossly intact. Motor strength 5/5 in all extremities. Sensory grossly intact. Cerebellar exam normal. Normal gait. 17:15 Musculoskeletal/extremity: Extremities: grossly normal except: noted in the right shoulder: decreased ROM, deformity, pain, deltoid step off with anterior fullness of right shoulder noted , Circulation is intact in all extremities. Sensation intact. Vital Signs: 16:31 BP 120 / 82; Pulse 82; Resp 17; Temp 99.6(TE); Pulse Ox 98% on R/A; Weight 65.77 kg; tw2 Pain 10/10; 17:20 BP 114 / 75; Pulse 45; Resp 15; Pulse Ox 97% on R/A; kg Procedures: 16:41 Splinting: Splint applied to right arm using sling, applied by nurse. post reduction jr8 film - reveals normal alignment, Examined by me, post splint application: neurovascular intact, 2+ distal pulses palpable, brisk capillary refill noted, Patient tolerated well. MDM: 16:39 Patient medically screened. jr8 16:40 Data reviewed: vital signs, nurses notes, radiologic studies, plain films, and as a jr8 result, I will discharge patient. Data interpreted: Pulse oximetry: on room air is 98 %. Interpretation: normal. Counseling: I had a detailed discussion with the patient and/or guardian regarding: the historical points, exam findings, and any diagnostic results supporting the discharge/admit diagnosis, radiology results, the need for outpatient follow up, a orthopedic surgeon, to return to the emergency department if symptoms worsen or persist or if there are any questions or concerns that arise at home. Response to treatment: the patient's symptoms have resolved after treatment. 09/09 16:39 Order name: XRAY Shoulder RIGHT 2 view jr8 09/09 16:41 Order name: Russell; Complete Time: 16:43 jr8 Administered Medications: 16:45 Drug: [place] (HYDROcodone-acetaminophen) (7.5 mg-325 mg) 1 tabs {Note: rass 0.} Route: tw2 PO; 17:22 Follow up: Response: No adverse reaction; Pain is decreased kg 16:45 Drug: TORadol (ketorolac) 30 mg Route: IM; Site: left deltoid; tw2 17:22 Follow up: Response: No adverse reaction; Marked relief of symptoms; Pain is decreased kg Disposition: 18:17 Co-signature as Attending Physician, Zak Gastelum MD I agree with the assessment and kdr plan of care. Disposition: 09/09/20 16:41 Discharged to Home. Impression: Anterior dislocation of right humerus. - Condition is Stable. - Discharge Instructions: Shoulder Dislocation. - Prescriptions for Ibuprofen 800 mg Oral Tablet - take 1 tablet by ORAL route every 12 hours As needed take with food; 20 tablet. - Medication Reconciliation Form, Thank You Letter, Antibiotic Education, Prescription Opioid Use form. - Follow up: Luis Aguilera MD; When: 1 week; Reason: Recheck today's complaints, Continuance of care, Re-evaluation by your physician. - Problem is new. - Symptoms are resolved. Signatures: Dispatcher [employer] EDAL Zak Gastelum MD MD [facility] Anival Herrera PA PA jr8 Fariha Bonner RN RN tw2 Ade Ramirez RN RN kg Corrections: (The following items were deleted from the chart) 17:24 16:41 09/09/2020 16:41 Discharged to Home. Impression: Anterior dislocation of right kg humerus. Condition is Stable. Forms are Medication Reconciliation Form, Thank You Letter, Antibiotic Education, Prescription Opioid Use. Follow up: Luis Aguilera; When: 1 week; Reason: Recheck today's complaints, Continuance of care, Re-evaluation by your physician. Problem is new. Symptoms are resolved. jr8
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
[2020-09-09] MEDS ORDERED: HYDROCODONE/APAP 7.5/325 MG TAB ONE (17:03)
[2020-09-09] MEDS ORDERED: KETOROLAC 30 MG/ML INJ ONE (17:04)
--- NOTE | 2020-09-09 17:23 | RAD REPORT ---
EXAM DESCRIPTION: RAD - Shoulder Right 2 View - 09/09/2020 5:10 pm CLINICAL HISTORY: Right shoulder pain FINDINGS: Hill-Sachs deformity. No dislocation seen
[2020-09-09 17:29] VITALS: TEMP 99.6
[2020-09-09 17:31] VITALS: BP 114/75; O2SAT 97
== END 2020-09-09 17:24 | disposition home or self-care (01) ==
LOC: ER 16:21
PROC: 0RSJXZZ Reposition Right Shoulder Joint, External Approach (ICD-10-PCS; principal; 2020-09-09)
DX: S53.114A Anterior dislocation of right ulnohumeral joint, initial encounter (principal)
CPT/HCPCS: 96372; 99283

== ENCOUNTER 2021-11-07 17:43 | Emergency (ER) | payer SELFPAY ==
[2021-11-07] MEDS ORDERED: DIAZEPAM 5 MG TABLET ONE (18:16)
--- NOTE | 2021-11-07 18:19 | ER ---
Nurse's Notes [facility] Name: Fredis Buck Age: 21 yrs Sex: Male : 2000 Arrival Date: 11/07/2021 Time: 17:44 Bed Waiting Private MD: Diagnosis: Recurrent dislocation, right shoulder Presentation: 11/07 18:13 Chief complaint: Patient states: R shoulder dislocation playing basketball 20 min [employer]. ll1 History of the same. Coronavirus screen: Vaccine status: Patient reports being unvaccinated. Client denies travel out of the [place] in the last 14 days. At this time, the client does not indicate any symptoms associated with coronavirus-19. Ebola Screen: Patient denies travel to an Ebola-affected area in the 21 days before illness onset. Initial Sepsis Screen: Does the patient meet any 2 criteria? No. Patient's initial sepsis screen is negative. Does the patient have a suspected source of infection? No. Patient's initial sepsis screen is negative. Risk Assessment: Do you want to hurt yourself or someone else? Patient reports no desire to harm self or others. Onset of symptoms was November 07, 2021. 18:13 Method Of Arrival: Ambulatory ll1 18:13 Acuity: RICHELLE 3 ll1 Triage Assessment: 18:14 General: Appears uncomfortable, Behavior is calm, cooperative, appropriate for age. ll1 Pain: Complains of pain in anterior aspect of right shoulder Pain currently is 10 out of 10 on a pain scale. Quality of pain is described as aching, throbbing. Musculoskeletal: Reports pain in anterior aspect of right shoulder. Injury Description: Deformity. Historical: - Allergies: 17:54 No Known Allergies; snw - PMHx: 18:12 shoulder dislocations; ll1 - PSHx: 18:12 None; ll1 - Immunization history:: Client reports having NOT received the Covid vaccine. - Social history:: Smoking status: Patient denies any tobacco usage or history of. Screenin:27 Abuse screen: Denies threats or abuse. Nutritional screening: No deficits noted. ll1 Tuberculosis screening: No symptoms or risk factors identified. Fall Risk Total Lynn Fall Scale indicates No Risk (0-24 pts). Assessment: 18:26 Reassessment: No changes from previously documented assessment. Patient and/or family ll1 updated on plan of care and expected duration. Pain level reassessed. Patient is alert, oriented x 3, equal unlabored respirations, skin warm/dry/pink. Musculoskeletal: Circulation, motion, and sensation intact. Capillary refill < 3 seconds, Reports pain in anterior aspect of right shoulder. Vital Signs: 18:13 BP 118 / 70; Pulse 92; Resp 18; Temp 97.9; Pulse Ox 96% ; Pain 10/10; ll1 ED Course: 17:44 Patient arrived in ED. mr 17:48 Kanika Aguilar FNP-C [facility]. snw 17:48 Alireza Guy MD is Attending Physician. snw 18:12 Arm band placed on. ll1 18:13 Shoulder immobilizer applied on right shoulder. ll1 18:14 Triage completed. ll1 18:27 No provider procedures requiring assistance completed. Patient did not have IV access ll1 during this emergency room visit. 18:28 Patient has correct armband on for positive identification. Bed in low position. Call ll1 light in reach. Side rails up X 1. Cardiac monitoring not applicable on this patient. Administered Medications: 18:12 Drug: Valium (diazepam) 10 mg Route: PO; ll1 18:28 Follow up: Response: No adverse reaction ll1 Medication: 18:27 VIS not applicable for this client. ll1 Outcome: 18:19 Discharge ordered by . snw 18:27 Discharged to home ambulatory. ll1 18:27 Condition: stable 18:27 Discharge instructions given to patient, Instructed on discharge instructions, follow up and referral plans. medication usage, Demonstrated understanding of instructions, follow-up care, medications, Prescriptions given X 1. 18:29 Patient left the ED. ll1 Signatures: Kanika Aguilar FNP-C CLAIM REP-Betsey Jessica AndujarMichelle, RN RN ll1 Corrections: (The following items were deleted from the chart) 18:17 18:13 Pulse 92bpm; Resp 18bpm; Pulse Ox 96%; Temp 97.9F; Pain 10/10; ll1 ll1
--- NOTE | 2021-11-07 18:20 | EDPHYS ---
Physician Documentation [facility] Name: Fredis Buck Age: 21 yrs Sex: Male : 2000 Arrival Date: 11/07/2021 Time: 17:44 Bed Waiting Private MD: ED Physician Alireza Guy HPI: 11/07 17:55 This 21 yrs old Black Male presents to ER via Unassigned with complaints of Dislocated snw shoulder. 17:55 Onset: The symptoms/episode began/occurred acutely, and became persistent. Associated snw signs and symptoms: The patient has no apparent associated signs or symptoms. The patient has experienced similar episodes in the past, multiple times. The patient has not recently seen a physician. playing basketball and shoulder dislocation occurred, . Historical: - Allergies: 17:54 No Known Allergies; snw - PMHx: 18:12 shoulder dislocations; ll1 - PSHx: 18:12 None; ll1 - Immunization history:: Client reports having NOT received the Covid vaccine. - Social history:: Smoking status: Patient denies any tobacco usage or history of. ROS: 17:54 Constitutional: Negative for fever, chills, and weight loss, Eyes: Negative for injury, snw pain, redness, and discharge, ENT: Negative for injury, pain, and discharge, Neck: Negative for injury, pain, and swelling, Cardiovascular: Negative for chest pain, palpitations, and edema, Respiratory: Negative for shortness of breath, cough, wheezing, and pleuritic chest pain, Abdomen/GI: Negative for abdominal pain, nausea, vomiting, diarrhea, and constipation, Back: Negative for injury and pain, : Negative for injury, bleeding, discharge, and swelling, Skin: Negative for injury, rash, and discoloration, Neuro: Negative for headache, weakness, numbness, tingling, and seizure, Psych: Negative for depression, anxiety, suicide ideation, homicidal ideation, and hallucinations. 17:54 MS/extremity: Positive for injury or acute deformity, decreased range of motion, deformity, of the anterior aspect of right shoulder. Exam: 17:52 Constitutional: This is a well developed, well nourished patient who is awake, alert, snw and in no acute distress. Head/Face: Normocephalic, atraumatic. Eyes: Pupils equal round and reactive to light, extra-ocular motions intact. Lids and lashes normal. Conjunctiva and sclera are non-icteric and not injected. Cornea within normal limits. Periorbital areas with no swelling, redness, or edema. ENT: Nares patent. No nasal discharge, no septal abnormalities noted. Tympanic membranes are normal and external auditory canals are clear. Oropharynx with no redness, swelling, or masses, exudates, or evidence of obstruction, uvula midline. Mucous membranes moist. Neck: Trachea midline, no thyromegaly or masses palpated, and no cervical lymphadenopathy. Supple, full range of motion without nuchal rigidity, or vertebral point tenderness. No Meningismus. Chest/axilla: Normal chest wall appearance and motion. Nontender with no deformity. No lesions are appreciated. Cardiovascular: Regular rate and rhythm with a normal S1 and S2. No gallops, murmurs, or rubs. Normal PMI, no JVD. No pulse deficits. Respiratory: Lungs have equal breath sounds bilaterally, clear to auscultation and percussion. No rales, rhonchi or wheezes noted. No increased work of breathing, no retractions or nasal flaring. Abdomen/GI: Soft, non-tender, with normal bowel sounds. No distension or tympany. No guarding or rebound. No evidence of tenderness throughout. Back: No spinal tenderness. No costovertebral tenderness. Full range of motion. Skin: Warm, dry with normal turgor. Normal color with no rashes, no lesions, and no evidence of cellulitis. Neuro: Awake and alert, GCS 15, oriented to person, place, time, and situation. Cranial nerves II-XII grossly intact. Motor strength 5/5 in all extremities. Sensory grossly intact. Cerebellar exam normal. Normal gait. Psych: Awake, alert, with orientation to person, place and time. Behavior, mood, and affect are within normal limits. 17:52 Musculoskeletal/extremity: Extremities: grossly normal except: noted in the anterior aspect of right shoulder: decreased ROM, deformity, pain, ROM: limited active range of motion due to pain, limited passive range of motion due to pain, in the right shoulder, Circulation is intact in all extremities. Sensation intact. Vital Signs: 18:13 BP 118 / 70; Pulse 92; Resp 18; Temp 97.9; Pulse Ox 96% ; Pain 10/10; ll1 Procedures: 18:18 Reduction: of the right shoulder, using manipulation, Immobilized with shoulder snw immobilizer. Patient tolerated well. MDM: 17:48 Patient medically screened. snw 18:21 Data reviewed: vital signs, nurses notes. Data interpreted: Pulse oximetry: on room air snw is 99 %. Interpretation: normal. Counseling: I had a detailed discussion with the patient and/or guardian regarding: the historical points, exam findings, and any diagnostic results supporting the discharge/admit diagnosis, the need for outpatient follow up, to return to the emergency department if symptoms worsen or persist or if there are any questions or concerns that arise at home. Response to treatment: the patient's symptoms have markedly improved after treatment. Special discussion: Based on the history and exam findings, there is no indication for further emergent testing or inpatient evaluation. I discussed with the patient/guardian the need to see the orthopedic surgeon for further evaluation of the symptoms. 11/07 18:18 Order name: Shoulder Immobilizer; Complete Time: 18:28 snw Administered Medications: 18:12 Drug: Valium (diazepam) 10 mg Route: PO; ll1 18:28 Follow up: Response: No adverse reaction ll1 Disposition: 18:25 Co-signature as Attending Physician, Alireza Guy MD. rn Disposition Summary: 11/07/21 18:19 Discharge Ordered Location: Home snw Condition: Stable snw Diagnosis - Recurrent dislocation, right shoulder snw Followup: snw - With: Emergency Department - When: As needed - Reason: Worsening of condition Followup: snw - With: Private Physician - When: 2 - 3 days - Reason: Recheck today's complaints, Continuance of care, Re-evaluation by your physician Discharge Instructions: - Discharge Summary Sheet snw - Shoulder Dislocation snw - Surgery for Recurrent Shoulder Laxity and Instability snw Forms: - Work release form snw - Medication Reconciliation Form snw - Thank You Letter snw - Antibiotic Education snw - Prescription Opioid Use snw Prescriptions: - Mobic 7.5 mg Oral Tablet - take 1 tablet by ORAL route once daily take with food; 20 tablet; Refills: 0, snw Product Selection Permitted Signatures: Kanika Aguilar, MIREILLE-C BASIN OPERATOR-Csnw Alireza Guy MD MD rn Lewis, Lynsay, RN RN ll1
[2021-11-07 19:01] VITALS: BP 118/70; TEMP 97.9; O2SAT 96
== END 2021-11-07 18:29 | disposition home or self-care (01) ==
LOC: ER 17:43
PROC: 0RSJXZZ Reposition Right Shoulder Joint, External Approach (ICD-10-PCS; principal; 2021-11-07)
DX: M24.411 Recurrent dislocation, right shoulder (principal)
CPT/HCPCS: 99283

== ENCOUNTER 2021-12-01 16:14 | Emergency (ER) | payer SELFPAY ==
[2021-12-01 17:55] LABS: Urine Blood 2+ (Negative); Urine Glucose Negative (Negative); Urine Protein Negative (Negative); Urine Specific Gravity >=1.030 (1.005-1.030)
[2021-12-01 17:58] LABS: Absolute Lymphocytes (CBC) 1.3 K/uL (0.7-4.9); Hematocrit 41.7 % (39.6-49.0); Lymphocytes % 14.3 % (15.3-44.8); MCV 82.9 fL (80-100); MPV 8.6 fL (7.6-11.3); RBC Red Blood Cell Count 5.03 M/uL (4.33-5.43)
[2021-12-01 18:09] LABS: Urine Mucus Slight /HPF (None Seen)
[2021-12-01 18:16] LABS: Albumin 4.2 g/dL (3.4-5.0); Bilirubin Total 0.5 mg/dL (0.2-1.0); Potassium 3.9 mmol/L (3.5-5.1); Protein, Total 7.5 g/dL (6.4-8.2)
[2021-12-01] MEDS ORDERED: ONDANSETRON 4 MG/2 ML VIAL ONE (18:45)
[2021-12-01] MEDS ORDERED: FAMOTIDINE 20 MG/2 ML VIAL IV ONE (18:45)
[2021-12-01] MEDS ORDERED: DICYCLOMINE HCL 20 MG/2 ML AMP IM ONE (18:45)
[2021-12-01] MEDS ORDERED: NA CHLORIDE 0.9% 1,000 ML ONE (18:45)
--- NOTE | 2021-12-01 19:57 | RAD REPORT ---
EXAM DESCRIPTION: CTAbdomen Pelvis W Contrast - 12/01/2021 7:51 pm CLINICAL HISTORY: Abdominal pain. upper abdomen pain COMPARISON: CT ABD PELVIS W CONTRAST dated 04/15/2015 TECHNIQUE: Biphasic CT imaging of the abdomen and pelvis was performed with 100 ml non-ionic IV cont rast. All CT scans are performed using dose optimization technique as appropriate and may include automated exposure control or mA/KV adjustment according to patient size. FINDINGS: The lung bases are clear. The liver, spleen, pancreas, adrenal glands and kidneys are within normal limits. Trace pericholecyst ic fluid may be present. No bowel obstruction, free air, free fluid or abscess. Prominent fecal retention throughout the colon . The appendix is normal. No evidence of significant lymphadenopathy. No suspicious bony findings. IMPRESSION: Prominent fecal retention throughout the colon. Trace pericholecystic fluid may be present. Recommend followup gallbladder ultrasound.
--- NOTE | 2021-12-01 20:49 | RAD REPORT ---
EXAM DESCRIPTION: US - Abdomen Exam Limited - 12/01/2021 8:41 pm CLINICAL HISTORY: upper abdomen pain COMPARISON: No comparisonsNo comparisons FINDINGS: The gallbladder demonstrates no gallstones. No pericholecystic fluid or gallbladder wall t hickening. The common bile duct is not dilated. The liver demonstrates no findings of intrahepatic biliary dilatation. IMPRESSION: Unremarkable examination.
--- NOTE | 2021-12-01 21:05 | EDPHYS ---
Physician Documentation [facility] Name: Fredis Buck Age: 21 yrs Sex: Male : 2000 Arrival Date: 12/01/2021 Time: 16:30 Bed 10 Private MD: ED Physician Greyson Zamudio HPI: 12/01 17:45 This 21 yrs old Black Male presents to ER via Ambulatory with complaints of Abdominal cp Pain. 17:45 The patient presents with abdominal pain in the upper abdomen, mid abdomen. Onset: The cp symptoms/episode began/occurred last night. Associated signs and symptoms: Pertinent positives: diarrhea times 2 days, Pertinent negatives: chest pain, constipation, dysuria, fever, testicular pain, vomiting. The symptoms are described as constant, crampy. Modifying factors: the symptoms are aggravated by movement, pressure. Severity of pain: in the emergency department the pain is a 8 / 10. Historical: - Allergies: 16:34 No Known Allergies; ph - PMHx: 16:34 shoulder dislocations; ph - Immunization history:: Adult Immunizations unknown. - Social history:: Smoking status: Reported history of juuling and/or vaping. ROS: 17:50 Constitutional: Negative for body aches, chills, fever, poor PO intake. cp 17:50 Eyes: Negative for injury, pain, redness, and discharge. cp 17:50 ENT: Negative for drainage from ear(s), ear pain, sore throat, difficulty swallowing, difficulty handling secretions. 17:50 Cardiovascular: Negative for chest pain, edema, palpitations. 17:50 Respiratory: Negative for cough, shortness of breath, wheezing. 17:50 Abdomen/GI: Positive for abdominal pain, diarrhea, abdominal cramps, Negative for vomiting, constipation, hematemesis, black/tarry stool, rectal bleeding. 17:50 Back: Negative for pain at rest, pain with movement. 17:50 : Negative for urinary symptoms, testicular pain 17:50 Neuro: Negative for altered mental status, dizziness, headache, syncope, weakness. 17:50 All other systems are negative. Exam: 17:55 Constitutional: The patient appears in no acute distress, alert, awake, cp non-diaphoretic, non-toxic, well developed, well nourished, uncomfortable. 17:55 Head/Face: Normocephalic, atraumatic. cp 17:55 Eyes: Periorbital structures: appear normal, Conjunctiva: normal, no exudate, no injection, Sclera: no appreciated abnormality, Lids and lashes: appear normal, bilaterally. 17:55 ENT: External ear(s): are unremarkable, Nose: is normal, Mouth: Lips: moist, Oral mucosa: pink and intact, moist, Posterior pharynx: is normal, airway is patent, no erythema, no exudate. 17:55 Neck: ROM/movement: is normal, is supple, without pain, no range of motions limitations. 17:55 Chest/axilla: Inspection: normal, Palpation: is normal, no crepitus, no tenderness. 17:55 Cardiovascular: Rate: bradycardic, Rhythm: regular. 17:55 Respiratory: the patient does not display signs of respiratory distress, Respirations: normal, no use of accessory muscles, no retractions, labored breathing, is not present, Breath sounds: are clear throughout, no decreased breath sounds, no stridor, no wheezing. 17:55 Abdomen/GI: Inspection: abdomen appears normal, Bowel sounds: active, all quadrants, Palpation: soft, in all quadrants, moderate abdominal tenderness, in the epigastric area, umbilical area, right upper quadrant and left upper quadrant, rebound tenderness, is not appreciated, voluntary guarding, is elicited in the epigastric area. 17:55 Back: CVA tenderness, is absent. 17:55 Neuro: Orientation: to person, place \T\ time. Mentation: is normal. Vital Signs: 16:31 BP 119 / 63; Pulse 53; Resp 14; Temp 98.4; Pulse Ox 100% ; Weight 63.5 kg; Height 5 ft. ph 6 in. (167.64 cm); Pain 8/10; 20:29 BP 123 / 73; Pulse 46; Resp 18; Pulse Ox 100% on R/A; Pain 4/10; tw5 16:31 Body Mass Index 22.60 (63.50 kg, 167.64 cm) ph MDM: 18:00 Differential diagnosis: appendicitis, cholecystitis, Cholelithiasis, gastritis, cp pancreatitis, Peptic Ulcer Disease, Perf. Duodenal Ulcer, Perf. Gastric Ulcer, Pyelonephritis, Testicular Torsion. 18:09 Patient medically screened. cp 21:05 Data reviewed: vital signs, nurses notes, lab test result(s), radiologic studies, CT cp scan, ultrasound. 21:05 Counseling: I had a detailed discussion with the patient and/or guardian regarding: the cp historical points, exam findings, and any diagnostic results supporting the discharge/admit diagnosis, lab results, radiology results, to return to the emergency department if symptoms worsen or persist or if there are any questions or concerns that arise at home. Response to treatment: the patient's symptoms have markedly improved after treatment, and as a result, I will discharge patient. 12/01 17:11 Order name: CBC with Diff; Complete Time: 18:09 cp 12/01 18:09 Interpretation: Normal except: MARY% 76.0; LYM% 14.3. cp 12/01 17:11 Order name: CMP; Complete Time: 18:18 cp 12/01 17:11 Order name: Lipase; Complete Time: 18:18 cp 12/01 17:11 Order name: Urine Microscopic Only; Complete Time: 18:09 cp 12/01 18:09 Interpretation: Reviewed. 12/01 17:55 Order name: Urine Dipstick-Ancillary; Complete Time: 18:09 EDMS 12/01 18:18 Interpretation: Normal except: UBLD 2+. cp 12/01 18:40 Order name: CT Abd/Pelvis - IV Contrast Only; Complete Time: 20:01 cp 12/01 17:11 Order name: IV Saline Lock; Complete Time: 17:59 cp 12/01 17:11 Order name: Labs collected and sent; Complete Time: 17:59 cp 12/01 17:11 Order name: Urine Dipstick-Ancillary (obtain specimen); Complete Time: 17:59 cp 12/01 20:02 Order name: US Abdomen Limited; Complete Time: 21:01 cp 12/01 20:02 Order name: NPO; Complete Time: 20:29 cp Administered Medications: 18:41 Drug: Pepcid (famotidine) 20 mg Route: IVP; Site: left antecubital; hb 21:11 Follow up: Response: No adverse reaction tw5 18:41 Drug: Zofran (Ondansetron) 4 mg Route: IVP; Site: left antecubital; hb 21:11 Follow up: Response: No adverse reaction tw5 18:41 Drug: Bentyl (dicyclomine) 20 mg Route: IM; Site: right deltoid; hb 21:11 Follow up: Response: No adverse reaction tw5 18:41 Drug: NS 0.9% 1000 ml Route: IV; Rate: 1 bolus; Site: left antecubital; hb 21:12 Follow up: Response: No adverse reaction; IV Status: Completed infusion; IV Intake: tw5 1000ml Disposition Summary: 12/01/21 21:05 Discharge Ordered Location: Home cp Problem: new cp Symptoms: have improved cp Condition: Stable cp Diagnosis - Upper abdominal pain, unspecified cp - Diarrhea, unspecified cp Followup: cp - With: Private Physician - When: 1 - 2 days - Reason: Worsening of condition Discharge Instructions: - Discharge Summary Sheet cp - Abdominal Pain, Adult cp - Food Choices to Help Relieve Diarrhea, Adult cp - Diarrhea, Adult cp Forms: - Medication Reconciliation Form cp - Thank You Letter cp - Antibiotic Education cp - Prescription Opioid Use cp Prescriptions: - Pepcid 20 mg Oral Tablet - take 1 tablet by ORAL route every 12 hours for 10 days; 20 tablet; Refills: 0, cp Product Selection Permitted - Zofran 4 mg Oral Tablet - take 1 tablet by ORAL route every 12 hours As needed; 20 tablet; Refills: 0, cp Product Selection Permitted Signatures: Dispatcher [employer] Alba Leong RN RN Remi Rashid PA PA cp Baxter, Heather, MIKAYLA RN Ayla Mina tw5
--- NOTE | 2021-12-01 21:05 | ER ---
Nurse's Notes [facility] Name: Fredis Buck Age: 21 yrs Sex: Male : 2000 Arrival Date: 12/01/2021 Time: 16:30 Bed 10 Private MD: Diagnosis: Upper abdominal pain, unspecified;Diarrhea, unspecified Presentation: 12/01 16:31 Chief complaint: Patient states: Stomach pain since last night, diarrhea x 2 days, ph hurts in upper abdomen "cramping". Coronavirus screen: Client denies travel out of the [place] in the last 14 days. At this time, the client does not indicate any symptoms associated with coronavirus-19. Ebola Screen: No symptoms or risks identified at this time. Initial Sepsis Screen: Does the patient meet any 2 criteria? No. Patient's initial sepsis screen is negative. Does the patient have a suspected source of infection? No. Patient's initial sepsis screen is negative. Risk Assessment: Do you want to hurt yourself or someone else? Patient reports no desire to harm self or others. Onset of symptoms was November 30, 2021. 16:31 Method Of Arrival: Ambulatory ph 16:31 Acuity: RICHELLE 4 ph Triage Assessment: 16:34 General: Appears in no apparent distress. Behavior is calm, cooperative, appropriate ph for age. Pain: Complains of pain in epigastric area and abdomen diffusely. Historical: - Allergies: 16:34 No Known Allergies; ph - PMHx: 16:34 shoulder dislocations; ph - Immunization history:: Adult Immunizations unknown. - Social history:: Smoking status: Reported history of juuling and/or vaping. Screenin:41 Abuse screen: Denies threats or abuse. Denies injuries from another. Nutritional hb screening: No deficits noted. Tuberculosis screening: No symptoms or risk factors identified. Fall Risk None identified. Assessment: 18:41 General: Appears in no apparent distress. uncomfortable, Behavior is calm, cooperative. hb Neuro: Level of Consciousness is awake, alert, obeys commands, Oriented to person, place, time, situation. Cardiovascular: Patient's skin is warm and dry. Respiratory: Respiratory effort is even, unlabored, Respiratory pattern is regular, symmetrical. GI: Reports lower abdominal pain, upper abdominal pain, nausea. : No signs and/or symptoms were reported regarding the genitourinary system. EENT: No signs and/or symptoms were reported regarding the EENT system. Derm: Skin is pink, warm \\T\\ dry. Musculoskeletal: No signs and/or symptoms reported regarding the musculoskeletal system. 20:29 General: Appears in no apparent distress. Behavior is calm, cooperative, appropriate tw5 for age, Reports "I am feeling a little better.". Pain: Complains of pain in abdomen Pain currently is 4 out of 10 on a pain scale. Vital Signs: 16:31 BP 119 / 63; Pulse 53; Resp 14; Temp 98.4; Pulse Ox 100% ; Weight 63.5 kg; Height 5 ft. ph 6 in. (167.64 cm); Pain 8/10; 20:29 BP 123 / 73; Pulse 46; Resp 18; Pulse Ox 100% on R/A; Pain 4/10; tw5 16:31 Body Mass Index 22.60 (63.50 kg, 167.64 cm) ph ED Course: 16:30 Patient arrived in ED. ph 16:31 Remi Rodrigez PA is PHCP. cp 16:31 Greyson Zamudio DO is Attending Physician. cp 16:34 Triage completed. ph 16:34 Arm band placed on right wrist. Patient placed in waiting room, Patient notified of ph wait time. 17:58 Initial lab(s) drawn, by me, sent to lab. Inserted saline lock: 20 gauge in left kj1 antecubital area, using aseptic technique. Blood collected. 18:33 Jayde Lowry RN is Primary Nurse. hb 18:41 Allergy band placed. hb 19:53 CT Abd/Pelvis - IV Contrast Only In Process Unspecified. EDMS 20:43 US Abdomen Limited In Process Unspecified. EDMS 20:59 Primary Nurse role handed off by Jayde Lowry RN tw5 20:59 Ayla Ernst is Primary Nurse. tw5 21:16 No provider procedures requiring assistance completed. IV discontinued, intact, tw5 bleeding controlled, No redness/swelling at site. Pressure dressing applied. Administered Medications: 18:41 Drug: Pepcid (famotidine) 20 mg Route: IVP; Site: left antecubital; hb 21:11 Follow up: Response: No adverse reaction tw5 18:41 Drug: Zofran (Ondansetron) 4 mg Route: IVP; Site: left antecubital; hb 21:11 Follow up: Response: No adverse reaction tw5 18:41 Drug: Bentyl (dicyclomine) 20 mg Route: IM; Site: right deltoid; hb 21:11 Follow up: Response: No adverse reaction tw5 18:41 Drug: NS 0.9% 1000 ml Route: IV; Rate: 1 bolus; Site: left antecubital; hb 21:12 Follow up: Response: No adverse reaction; IV Status: Completed infusion; IV Intake: tw5 1000ml Medication: 18:41 VIS not applicable for this client. hb Intake: 21:12 IV: 1000ml; Total: 1000ml. 5 Outcome: 21:05 Discharge ordered by . girish 21:16 Discharged to home ambulatory. tw 21:16 Condition: improved 21:16 Discharge instructions given to patient, Instructed on discharge instructions, follow up and referral plans. Demonstrated understanding of instructions, follow-up care, medications, Prescriptions given X 2. 21:16 Patient left the ED. 5 Signatures: Dispatcher [employer] Alba Leong, RN RN Remi Rashid, CODY PA Jayde Krishnan, RN RN Shasha Wilcox Tiffany tw5
[2021-12-01 22:36] VITALS: TEMP 98.4; O2SAT 100
[2021-12-01 22:39] VITALS: BP 123/73
== END 2021-12-01 21:16 | disposition home or self-care (01) ==
LOC: ER 16:14
DX: R10.10 Upper abdominal pain, unspecified (principal); R19.7 Diarrhea, unspecified
CPT/HCPCS: 36415; 74177; 76705; 80053; 81003; 81015; 83690; 85025; 96361; 96372; 96374; 96375; 99284; J0500; J2405; J7030; Q9967

== ENCOUNTER 2022-01-28 14:20 | Emergency (ER) | payer SELFPAY ==
--- OUTSIDE RECORDS SUMMARY | 2022-01-28 14:23 | XMS REPORT | Continuity of Care Document ---
:2000 Author Organization [facility] Address [address] [place] [address] [address] [place] [address] Care Team Providers Name Role Phone Doctor Unassigned, [place] Attending Clinician Unavailable Margie Sanabria PA-C Attending Clinician Payers Payer Name Policy Type Policy Number Effective Date Expiration Date S ource Problems Condition Condition Condition Status Onset Resolution Last Treating Co mments Source Name Details Category Date Date Treatment Clinician Date Bradycardi Bradycardi Disease Active U nivers a a 3-28 ity of 00:00: [place] 00 [facility] Branch Tourette Tourette Disease Active Unive rs syndrome syndrome ity of [place] Medical Branch ADHD ADHD Disease Active Univers (attention (attention it y of deficit deficit [place] hyperactiv hyperactiv Me dical ity ity Branch disorder) disorder) Allergies, Adverse Reactions, Alerts This patient has no known allergies or adverse reactions. Social History Social Habit Start Date Stop Date Quantity Comments Source Sex Assigned At [facility] Medical Branch Tobacco use and 2018-04-10 2018-04-10 Never used [facility] exposure 00:00:00 00:00:00 Medical Branch Smoking Status Start Date Stop Date Source Never smoker [facility] Branch Medications Ordered Filled Start Stop Current Ordering Indication Dosage Frequency Signature Comments Components Source Medication Medication Date Date Medication? Clinician (SIG) Name Name NAPROXEN Yes Take by Univer s SODIUM 1-09 mouth. ity of (ALEVE 16:57: [place] ORAL) [address] [place] [address] Branch NAPROXEN Yes Take by Univer s SODIUM 1-09 mouth. ity of (ALEVE 16:57: [place] ORAL) 46 Medical Branch azithromyci 2017-04 Yes 250mg Take 1 Uni vers n 250 mg 0-23 tablet by ity of tablet 00:00: mouth [place] 00 SEE-INSTRU Medical CTIONS. Branch Take 500 mg day 1, then 250 mg days 2 to 5. fluticasone 2017-04 Yes 2{spray Use 2 Un surinder 50 0-23 } Sprays in ity of mcg/actuati 00:00: each [place] on nasal 00 nostril Medical spray daily. Branch albuterol 2017-04 Yes Can use 2 Uni vers 90 0-23 puffs 15 ity of mcg/actuati 00:00: to 20 [place] on inhaler 00 minutes Medica l before Branch exercise then 2 puffs q 4-6 hrs prn sob, cough, wheeze, bronchospa sm azithromyci 2017-04 Yes 250mg Take 1 Uni vers n 250 mg 0-23 tablet by ity of tablet 00:00: mouth [place] 00 SEE-[facility] CTIONS. Branch Take 500 mg day 1, then 250 mg days 2 to 5. fluticasone 2017-04 Yes 2{spray Use 2 Un surinder 50 0-23 } Sprays in ity of mcg/actuati 00:00: each [place] on nasal 00 nostril Medical spray daily. Branch albuterol 2017-04 Yes Can use 2 Uni vers 90 0-23 puffs 15 ity of mcg/actuati 00:00: to 20 [place] on inhaler 00 minutes Medica l before Branch exercise then 2 puffs q 4-6 hrs prn sob, cough, wheeze, bronchospa sm guanFACINE 2016-04 Yes [id number] 2mg Take 1 Univers ER (INTUNIV 0-04 tablet by ity of ER) 2 mg 00:00: mouth [place] tablet 00 every Medical evening. [place] guanFACINE 2016-04 Yes [id number] 1mg Take 1 Univers ER (INTUNIV 0-04 tablet by ity of ER) 1 mg 00:00: mouth [place] tablet 00 every Medical morning. [place] guanFACINE 2016-04 Yes [id number] 2mg Take 1 Univers ER (INTUNIV 0-04 tablet by ity of ER) 2 mg 00:00: mouth [place] tablet 00 every Medical evening. [place] guanFACINE 2016-04 Yes [id number] 1mg Take 1 Univers ER (INTUNIV 0-04 tablet by ity of ER) 1 mg 00:00: mouth [place] tablet 00 every Medical morning. [place] fluphenazin Yes .5mg Take 0.5 Un surinder e 1 mg 9-25 mg by ity of tablet 00:00: mouth. [address] fluphenazin 2013- Yes .5mg Take 0.5 Un surinder e 1 mg 9-25 mg by ity of tablet 00:00: mouth. [address] Immunizations Ordered Immunization Filled Immunization Date Status Commen ts Source Name Name [facility] 2016-10-18 Completed University 00:00:00 [facility] 2016-10-18 Completed University 00:00:00 [facility] Meningococcal B, OMV 2015-10-28 Completed Univ ersity of 00:00:00 [facility] Meningococcal B, OMV 2015-10-28 Completed Univ ersity of 00:00:00 [facility] Meningococcal 2015-10-27 Completed University of Polysaccharide 00:00:00 [facility] opal (groups A, C, Y and Branc h W-135) conjugate vaccine (MCV4P) [facility] 2015-10-27 Completed University 00:00:00 [facility] Meningococcal 2015-10-27 Completed University of Polysaccharide 00:00:00 [facility] opal (groups A, C, Y and Branc h W-135) conjugate vaccine (MCV4P) [facility] 2015-10-27 Completed University 00:00:00 [facility] Procedures Procedure Date / Time Performed Performing Clinician [facility] e EXTERNAL PROVIDER 2020-02-17 06:01:00 Doctor Unassigned, No [facility] [place] RECORDS Name [facility] Encounters Start End Encounter Admission Attending Care Care Encounter Source Date/Time Date/Time Type Type Clinicians Facility Department ID 2020-02-17 2020-02-17 Orders Doctor CONSUELO [id number] Univers 00:00:00 00:00:00 Only Unassigned, FREDO [id number] ity of [place] [facility] [id number] Adonay as [id number] [facility] 009 Branch 2020-02-10 2020-02-10 Telephone [facility] [id number] Univers 00:00:00 00:00:00 , Margie Santos [id number] it y of Pediatric [id number] [facility] [id number] Medi opal 225 Branch Results This patient has no known results.
--- NOTE | 2022-01-28 14:48 | ER ---
Nurse's Notes [facility] Name: Fredis Bcuk Age: 21 yrs Sex: Male : 2000 Arrival Date: 01/28/2022 Time: 14:25 Bed 12 Private MD: Diagnosis: Nonspecific urethritis Presentation: 01/28 14:28 Chief complaint: Yellow discharge from penis and burning with urination x 2 days. hb Coronavirus screen: At this time, the client does not indicate any symptoms associated with coronavirus-19. Ebola Screen: No symptoms or risks identified at this time. Initial Sepsis Screen: Does the patient meet any 2 criteria? No. Patient's initial sepsis screen is negative. Does the patient have a suspected source of infection? No. Patient's initial sepsis screen is negative. Risk Assessment: Do you want to hurt yourself or someone else? Patient reports no desire to harm self or others. Onset of symptoms was January 27, 2022. 14:28 Method Of Arrival: Ambulatory hb 14:28 Acuity: RICHELLE 4 hb Triage Assessment: 14:30 General: Appears in no apparent distress. Behavior is calm, cooperative. Pain: Denies hb pain. Neuro: Level of Consciousness is awake, alert, obeys commands, Oriented to person, place, time, situation. Cardiovascular: Patient's skin is warm and dry. Respiratory: Respiratory effort is even, unlabored, Respiratory pattern is regular, symmetrical. Historical: - Allergies: 14:29 No Known Allergies; hb - Home Meds: 14:29 None [Active]; hb - PMHx: 14:29 shoulder dislocations; hb - PSHx: 14:29 None; hb - Immunization history:: Adult Immunizations up to date. - Social history:: Smoking status: Patient denies any tobacco usage or history of. Screenin:30 Abuse screen: Denies threats or abuse. Denies injuries from another. Nutritional hb screening: No deficits noted. Tuberculosis screening: No symptoms or risk factors identified. Fall Risk None identified. Assessment: 14:30 General: SEE TRIAGE ASSESSMENT. hb 14:40 General: Appears in no apparent distress. comfortable. Pain: Denies pain. Neuro: Level tp1 of Consciousness is awake, alert, obeys commands, Oriented to person, place, time, situation. Cardiovascular: Patient's skin is warm and dry. Respiratory: Airway is patent Respiratory effort is even, unlabored. GI: No signs and/or symptoms were reported involving the gastrointestinal system. : Reports burning with urination, since 01/27/22 discharge, yellow, Denies urinary frequency, urgency. EENT: No signs and/or symptoms were reported regarding the EENT system. Derm: Skin is pink, warm \T\ dry. Musculoskeletal: Circulation, motion, and sensation intact. 15:31 Reassessment: Patient appears in no apparent distress at this time. No changes from tp1 previously documented assessment. Patient and/or family updated on plan of care and expected duration. Pain level reassessed. Patient is alert, oriented x 3, equal unlabored respirations, skin warm/dry/pink. Patient denies pain at this time. Vital Signs: 14:28 BP 117 / 71; Pulse 76; Resp 16; Temp 98.3(O); Pulse Ox 100% on R/A; Weight 65.77 kg; hb Height 5 ft. 6 in. (167.64 cm); Pain 0/10; 15:31 BP 116 / 77; Pulse 65; Resp 16; Pulse Ox 97% on R/A; tp1 14:28 Body Mass Index 23.40 (65.77 kg, 167.64 cm) hb ED Course: 14:25 Patient arrived in ED. am2 14:29 Triage completed. hb 14:29 Arm band placed on right wrist. hb 14:30 Patient has correct armband on for positive identification. hb 14:30 No provider procedures requiring assistance completed. hb 14:30 Patient did not have IV access during this emergency room visit. hb 14:35 Jayde Lowry RN is Primary Nurse. hb 14:35 Zak Gastelum MD is Attending Physician. kdr 14:45 Primary Nurse role handed off by Jayde Lowry RN tp1 14:45 Ayla Harrison RN is Primary Nurse. tp1 14:45 Assist provider with pelvic exam: Performed by Zak Gastelum MD Patient tolerated well. tp1 Administered Medications: 15:16 Drug: Rocephin (cefTRIAXone) 250 mg Route: IM; Site: right gluteus; tp1 15:31 Follow up: Response: Medication administered at discharge. tp1 15:19 Drug: Flagyl (metroNIDAZOLE) 2 grams Route: PO; tp1 15:31 Follow up: Response: Medication administered at discharge. tp1 15:19 Drug: AZITHromycin 1 grams Route: PO; tp1 15:31 Follow up: Response: Medication administered at discharge. tp1 Medication: 14:30 VIS not applicable for this client. hb Outcome: 14:48 Discharge ordered by . kdr 15:32 Discharged to home ambulatory. tp1 15:32 Condition: good 15:32 Discharge instructions given to patient, Instructed on discharge instructions, follow up and referral plans. medication usage, Demonstrated understanding of instructions, follow-up care, medications. 15:32 Patient left the ED. tp1 Signatures: Zak Gastelum MD MD [facility] Jayde Lowry, RN RN Cecilia Dewey Ayla Sainz, RN RN tp1 Corrections: (The following items were deleted from the chart) 14:45 14:44 Assist provider with pelvic exam: Set up pelvic tray. Performed by Zak mir MD
--- NOTE | 2022-01-28 14:48 | EDPHYS ---
Physician Documentation [facility] Name: Fredis Buck Age: 21 yrs Sex: Male : 2000 Arrival Date: 01/28/2022 Time: 14:25 Bed 12 Private MD: ED Physician Zak Gastelum HPI: 01/28 14:57 This 21 yrs old Black Male presents to ER via Ambulatory with complaints of Penile kdr Discharge. 14:57 The patient presents with a possible STD exposure, symptoms include dysuria, purulent kdr penile discharge. Onset: The symptoms/episode began/occurred gradually, 2 day(s) ago. Modifying factors: The symptoms are alleviated by nothing, the symptoms are aggravated by urinating. Associated signs and symptoms: The patient has no apparent associated signs or symptoms. Severity of symptoms: At their worst the symptoms were very mild, in the emergency department the symptoms are unchanged. The patient has experienced similar episodes in the past, a few times. The patient has not recently seen a physician. Historical: - Allergies: 14:29 No Known Allergies; hb - Home Meds: 14:29 None [Active]; hb - PMHx: 14:29 shoulder dislocations; hb - PSHx: 14:29 None; hb - Immunization history:: Adult Immunizations up to date. - Social history:: Smoking status: Patient denies any tobacco usage or history of. ROS: 14:57 Constitutional: Negative for fever, chills, and weight loss, Eyes: Negative for injury, kdr pain, redness, and discharge, Neck: Negative for injury, pain, and swelling, Cardiovascular: Negative for chest pain, palpitations, and edema, Respiratory: Negative for shortness of breath, cough, wheezing, and pleuritic chest pain, Abdomen/GI: Negative for abdominal pain, nausea, vomiting, diarrhea, and constipation, Back: Negative for injury and pain, MS/Extremity: Negative for injury and deformity, Skin: Negative for injury, rash, and discoloration, Neuro: Negative for headache, weakness, numbness, tingling, and seizure activity. Psych: Negative for depression, anxiety, suicide ideation, homicidal ideation, and hallucinations, Allergy/Immunology: Negative for hives, rash, and allergies, Endocrine: Negative for neck swelling, polydipsia, polyuria, polyphagia, and marked weight changes, Hematologic/Lymphatic: Negative for swollen nodes, abnormal bleeding, and unusual bruising. 14:57 : Positive for urinary symptoms, urinary frequency, small amounts, burning with urination, penile discharge, Negative for testicular pain acute changes. Exam: 14:57 Constitutional: This is a well developed, well nourished patient who is awake, alert, kdr and in no acute distress. Head/Face: Normocephalic, atraumatic. Eyes: Pupils equal round and reactive to light, extra-ocular motions intact. Lids and lashes normal. Conjunctiva and sclera are non-icteric and not injected. Cornea within normal limits. Periorbital areas with no swelling, redness, or edema. Neck: Trachea midline, no thyromegaly or masses palpated, and no cervical lymphadenopathy. Supple, full range of motion without nuchal rigidity, or vertebral point tenderness. No Meningismus. Chest/axilla: Normal chest wall appearance and motion. Nontender with no deformity. No lesions are appreciated. Cardiovascular: Regular rate and rhythm with a normal S1 and S2. No gallops, murmurs, or rubs. Normal PMI, no JVD. No pulse deficits. Respiratory: Lungs have equal breath sounds bilaterally, clear to auscultation and percussion. No rales, rhonchi or wheezes noted. No increased work of breathing, no retractions or nasal flaring. Abdomen/GI: Soft, non-tender, with normal bowel sounds. No distension or tympany. No guarding or rebound. No evidence of tenderness throughout. Skin: Warm, dry with normal turgor. Normal color with no rashes, no lesions, and no evidence of cellulitis. MS/ Extremity: Pulses equal, no cyanosis. Neurovascular intact. Full, normal range of motion. Neuro: Awake and alert, GCS 15, oriented to person, place, time, and situation. Cranial nerves II-XII grossly intact. Motor strength 5/5 in all extremities. Sensory grossly intact. Cerebellar exam normal. Normal gait. Psych: Awake, alert, with orientation to person, place and time. Behavior, mood, and affect are within normal limits. 14:57 : Male external genitalia: normal, Circumcision noted. penile discharge, green, purulent, Sexual behavior: the patient is sexually active, and reports a single partner. Vital Signs: 14:28 BP 117 / 71; Pulse 76; Resp 16; Temp 98.3(O); Pulse Ox 100% on R/A; Weight 65.77 kg; hb Height 5 ft. 6 in. (167.64 cm); Pain 0/10; 15:31 BP 116 / 77; Pulse 65; Resp 16; Pulse Ox 97% on R/A; tp1 14:28 Body Mass Index 23.40 (65.77 kg, 167.64 cm) hb MDM: 14:48 Patient medically screened. kdr 14:57 Data reviewed: vital signs, nurses notes, lab test result(s), radiologic studies. kdr Counseling: I had a detailed discussion with the patient and/or guardian regarding: the historical points, exam findings, and any diagnostic results supporting the discharge/admit diagnosis, lab results, the need for outpatient follow up. 01/28 14:49 Order name: GC (GONORR/CHLAMYDIA) Probe kdr 01/28 14:49 Order name: Wet Prep kdr Administered Medications: 15:16 Drug: Rocephin (cefTRIAXone) 250 mg Route: IM; Site: right gluteus; tp1 15:31 Follow up: Response: Medication administered at discharge. tp1 15:19 Drug: Flagyl (metroNIDAZOLE) 2 grams Route: PO; tp1 15:31 Follow up: Response: Medication administered at discharge. tp1 15:19 Drug: AZITHromycin 1 grams Route: PO; tp1 15:31 Follow up: Response: Medication administered at discharge. tp1 Disposition Summary: 01/28/22 14:48 Discharge Ordered Location: Home kdr Problem: new kdr Symptoms: are unchanged kdr Condition: Stable kdr Diagnosis - Nonspecific urethritis kdr Followup: kdr - With: Private Physician - When: 2 - 3 days - Reason: If symptoms return, Further diagnostic work-up, Recheck today's complaints, Continuance of care, Re-evaluation by your physician Discharge Instructions: - Discharge Summary Sheet kdr Forms: - Medication Reconciliation Form kdr - Thank You Letter kdr - Antibiotic Education kdr Signatures: Dispatcher [employer] Zak Lomax MD MD kdr Jayde Lowry RN RN Ayla Harrison RN RN tp1
[2022-01-28] MEDS ORDERED: metroNIDAZOLE 500 MG TABLET ONE (15:03)
[2022-01-28] MEDS ORDERED: CEFTRIAXONE 250 MG/VIAL ONE (15:04)
[2022-01-28] MEDS ORDERED: AZITHROMYCIN 250 MG TAB ONE (15:04)
[2022-01-28] MEDS ORDERED: WATER FOR INJ,STERILE 10 ML ONE (15:05)
[2022-01-28 15:48] VITALS: TEMP 98.3
[2022-01-28 15:49] VITALS: BP 116/77; O2SAT 97
[2022-01-31 23:26] LABS: C.trachomatis RNA,TMA Detected (Not Detected)
== END 2022-01-28 15:32 | disposition home or self-care (01) ==
LOC: ER 14:20
DX: N34.1 Nonspecific urethritis (principal)
CPT/HCPCS: 87210; 87490; 87590; 96372; 99283; J0696

== ENCOUNTER 2022-09-19 10:30 | Emergency (ER) | payer SELFPAY ==
--- OUTSIDE RECORDS SUMMARY | 2022-09-19 10:33 | XMS REPORT | Continuity of Care Document ---
:2000 Author Organization [facility] t Address [address] [place] [address] [place] [id number] Care Team Providers Name Role Phone Doctor Unassigned, [place] Attending Clinician Unavailable Margie Sanabria PA-C Attending Clinician Payers Payer Name Policy Type Policy Number Effective Date Expiration Date S ource Problems Condition Condition Condition Status Onset Resolution Last Treating Co mments Source Name Details Category Date Date Treatment Clinician Date Bradycardi Bradycardi Disease Active U nivers a a 3-28 ity of 00:00: [place] 00 [facility] Branch Tourette Tourette Disease Active Unive rs syndrome syndrome ity of [place] [facility] ADHD ADHD Disease Active Univers (attention (attention it y of deficit deficit [place] hyperactiv hyperactiv Me dical ity ity Branch disorder) disorder) Allergies, Adverse Reactions, Alerts This patient has no known allergies or adverse reactions. Social History Social Habit Start Date Stop Date Quantity Comments Source Sex Assigned At [facility] Branch Tobacco use and 2018-04-10 2018-04-10 Never used [facility] exposure 00:00:00 00:00:00 Medical Branch Smoking Status Start Date Stop Date Source Never smoker [facility] Medications Ordered Filled Start Stop Current Ordering Indication Dosage Frequency Signature Comments Components Source Medication Medication Date Date Medication? Clinician (SIG) Name Name NAPROXEN Yes Take by Univer s SODIUM 1-09 mouth. ity of (ALEVE 16:57: [place] ORAL) [address] [place] [address] Branch NAPROXEN Yes Take by Univer s [...] ity of tablet 00:00: mouth [place] 00 [facility] CTIONS. Branch Take 500 mg day 1, then 250 mg days 2 to 5. fluticasone 2017-04 Yes 2{spray Use 2 Un surinder 50 0-23 } Sprays in ity of mcg/actuati 00:00: each [place] on nasal 00 nostril Medical spray daily. Branch albuterol 2017-04 Yes Can use 2 Uni vers 90 0-23 puffs 15 ity of mcg/actuati 00:00: to 20 [place] on inhaler 00 minutes Medica l before Branch exercise then 2 puffs q 4-6 hrs prn sob, cough, wheeze, bronchospa sm guanFACINE 2016-04 Yes [id number] 2mg Take 1 Univers ER (INTUNIV 0-04 tablet by ity of ER) 2 mg 00:00: mouth [place] tablet 00 every Medical evening. [place] guanFACINE 2016-04 Yes [id number] 1mg Take 1 Univers ER (INTUNIV 0-04 tablet by ity of ER) 1 mg 00:00: mouth [place] tablet 00 every Medical morning. [place] guanFACINE 2016-04 Yes [id number] 2mg Take 1 Univers ER (INTUNIV 0-04 tablet by ity of ER) 2 mg 00:00: mouth [place] tablet 00 every Medical evening. [place] guanFACINE 2016-04 Yes [id number] 1mg Take 1 Univers ER (INTUNIV 0-04 tablet by ity of ER) 1 mg 00:00: mouth [place] tablet 00 every Medical morning. [place] fluphenazin Yes .5mg Take 0.5 Un surinder e 1 mg 9-25 mg by ity of tablet 00:00: mouth. [address] fluphenazin 2013- Yes .5mg Take 0.5 Un surinder e 1 mg 9-25 mg by ity of tablet 00:00: mouth. [address] Immunizations Ordered Immunization Filled Immunization Date Status Commen ts Source Name Name [facility] 2016-10-18 Completed University 00:00:00 [facility] 2016-10-18 Completed University 00:00:00 [facility] Meningococcal B, OMV 2015-10-28 Completed Univ ersity of 00:00:00 [facility] Meningococcal B, OMV 2015-10-28 Completed Univ ersity of 00:00:00 [facility] Meningococcal 2015-10-27 Completed University of Polysaccharide 00:00:00 [facility] opal (groups A, C, Y and Branc h W-135) conjugate vaccine (MCV4P) [facility] 2015-10-27 Completed University 00:00:00 [facility] Meningococcal 2015-10-27 Completed University of Polysaccharide 00:00:00 [facility] opal (groups A, C, Y and Branc h W-135) conjugate vaccine (MCV4P) [facility] 2015-10-27 Completed University 00:00:00 [facility] Procedures Procedure Date / Time Performed Performing Clinician [facility] e EXTERNAL PROVIDER 2020-02-17 06:01:00 Doctor Unassigned, No [facility] [place] RECORDS Name [facility] Encounters Start End Encounter Admission Attending Care Care Encounter Source Date/Time Date/Time Type Type Clinicians Facility Department ID 2020-02-17 2020-02-17 Orders Doctor CONSUELO [id number] Univers 00:00:00 00:00:00 Only Unassigned, FREDO [id number] ity of [place] [facility] [id number] [place]on[place] as [id number] [facility] 009 Branch 2020-02-10 2020-02-10 Telephone [facility] [id number] Univers 00:00:00 00:00:00 , Margie Santos [id number] it y of Pediatric [id number] [facility] [id number] Medi opal 225 Branch Results This patient has no known results.
[2022-09-19 11:06] LABS: Specific Gravity 1.027 (1.005-1.030); Urine Bacteria None Seen /HPF (<20); Urine Bilirubin NEGATIVE (Negative); Urine Blood 2+ (Negative); Urine Clarity Extremely Turbid (Clear); Urine Color Light-Yellow (Yellow); Urine Glucose NEGATIVE (Negative); Urine Mucus Slight /HPF (None Seen); Urine Protein TRACE (Negative); Urine Urobilinogen Normal (Normal)
[2022-09-19] MEDS ORDERED: DOXYCYCLINE 100 MG CAP PO ONE (11:14)
[2022-09-19] MEDS ORDERED: AZITHROMYCIN 250 MG TAB ONE (11:14)
[2022-09-19] MEDS ORDERED: LIDOCAINE 1% MPF 2 ML AMPULE ONE (11:14)
[2022-09-19] MEDS ORDERED: CEFTRIAXONE 1000 MG/VIAL ONE (11:14)
--- NOTE | 2022-09-19 11:22 | ER ---
Nurse's Notes [facility] Name: Fredis Buck Age: 22 yrs Sex: Male : 2000 Arrival Date: 09/19/2022 Time: 10:30 Bed 10 Private MD: Diagnosis: Dysuria;Contact with and (suspected) exposure to infections with a predominantly sexual mode of transmission Presentation: 09/19 10:42 Chief complaint: Patient states: needs an STD test, has discharge and some mild burning iw with urination , symptoms started two days ago. Coronavirus screen: At this time, the client does not indicate any symptoms associated with coronavirus-19. Ebola Screen: Patient negative for fever greater than or equal to 101.5 degrees Fahrenheit, and additional compatible Ebola Virus Disease symptoms Patient denies exposure to infectious person. Patient denies travel to an Ebola-affected area in the 21 days before illness onset. No symptoms or risks identified at this time. Initial Sepsis Screen: Does the patient meet any 2 criteria? Does the patient have a suspected source of infection? No. Patient's initial sepsis screen is negative. Risk Assessment: Do you want to hurt yourself or someone else? Patient reports no desire to harm self or others. 10:42 Method Of Arrival: Ambulatory iw 10:42 Acuity: RICHELLE 4 iw 11:20 Onset of symptoms was September 17, 2022. [facility] Historical: - Allergies: 10:43 No Known Allergies; iw - Home Meds: 10:43 None [Active]; iw - PMHx: 10:43 shoulder dislocations; iw - Immunization history:: Adult Immunizations unknown. - Social history:: Smoking status: unknown. Screenin:24 [facility] Fall Risk Assessment (Adult) History of falling in the last 3 months, [facility] including since admission No falls in past 3 months (0 pts) Confusion or Disorientation No (0 pts) Intoxicated or Sedated No (0 pts) Impaired Gait No (0 pts) Mobility Assist Device Used No (0 pt) Altered Elimination No (0 pt) Score/Fall Risk Level 0 - 2 = Low Risk Oriented to surroundings, Maintained a safe environment, Hourly rounding (assess needs \\T\\ fall precautionary measures) done. Abuse screen: Denies threats or abuse. Denies injuries from another. Nutritional screening: No deficits noted. Tuberculosis screening: No symptoms or risk factors identified. Assessment: 11:20 General: Appears in no apparent distress. comfortable, Behavior is calm, cooperative, nj1 appropriate for age. 11:20 Pain: Denies pain. Neuro: Level of Consciousness is awake, alert, obeys commands, nj1 Oriented to person, place, time, situation. Cardiovascular: Patient's skin is warm and dry. Respiratory: Airway is patent Respiratory effort is even, unlabored. : Reports burning with urination, discharge, from penis that is "greenish". Vital Signs: 10:42 BP 124 / 66; Pulse 47; Resp 16; Temp 98.1; Pulse Ox 100% on R/A; iw ED Course: 10:36 Patient arrived in ED. cc5 10:37 Remi Anderson MD is Attending Physician. [facility] 10:43 Triage completed. 10:43 Arm band placed on. 10:44 Jazzy Arreguin, RN is Primary Nurse. 11:20 Patient has correct armband on for positive identification. Bed in low position. Call nj1 light in reach. 11:26 No provider procedures requiring assistance completed. Patient did not have IV access nj1 during this emergency room visit. Administered Medications: 11:20 Drug: AZITHromycin PO 1 grams Route: PO; nj1 11:30 Follow up: Response: No adverse reaction nj1 11:20 Drug: Doxycycline PO 200 mg Route: PO; nj1 11:30 Follow up: Response: No adverse reaction nj1 11:21 Drug: Rocephin (cefTRIAXone) IM 1 grams Route: IM; Site: right gluteus; nj1 11:30 Follow up: Response: No adverse reaction nj1 Medication: 11:26 VIS not applicable for this client. nj1 Outcome: 11:21 Discharge ordered by . [facility] 11:30 Discharged to home ambulatory. nj1 11:30 Condition: stable nj1 11:30 Discharge instructions given to patient, Instructed on discharge instructions, follow up and referral plans. medication usage, Demonstrated understanding of instructions, follow-up care, medications, Prescriptions given X 2. 11:40 Patient left the ED. vg1 Signatures: Remi Anderson MD MD cha Williams, Irene, RN MIKAYLA Mariajose Mccall RN RN 1 Eleanor Morin cc5 Neli Mckeon RN RN nj1
--- NOTE | 2022-09-19 11:22 | EDPHYS ---
Physician Documentation [facility] Name: Fredis Buck Age: 22 yrs Sex: Male : 2000 Arrival Date: 09/19/2022 Time: 10:30 Bed 10 Private MD: ED Physician Remi Anderson HPI: 09/19 11:15 This 22 yrs old Black Male presents to ER via Ambulatory with complaints of STD mauro Exposure. Historical: - Allergies: 10:43 No Known Allergies; iw - Home Meds: 10:43 None [Active]; iw - PMHx: 10:43 shoulder dislocations; iw - Immunization history:: Adult Immunizations unknown. - Social history:: Smoking status: unknown. ROS: 11:15 Constitutional: Negative for fever, chills, and weight loss, Eyes: Negative for injury, mauro pain, redness, and discharge, ENT: Negative for injury, pain, and discharge, Neck: Negative for injury, pain, and swelling, Cardiovascular: Negative for chest pain, palpitations, and edema, Respiratory: Negative for shortness of breath, cough, wheezing, and pleuritic chest pain, Abdomen/GI: Negative for abdominal pain, nausea, vomiting, diarrhea, and constipation, Back: Negative for injury and pain, MS/Extremity: Negative for injury and deformity, Skin: Negative for injury, rash, and discoloration, Neuro: Negative for headache, weakness, numbness, tingling, and seizure, Psych: Negative for depression, anxiety, suicide ideation, homicidal ideation, and hallucinations, Allergy/Immunology: Negative for hives, rash, and allergies, Endocrine: Negative for neck swelling, polydipsia, polyuria, polyphagia, and marked weight changes. 11:15 : Positive for urinary symptoms, urinary frequency, burning with urination, penile discharge. Exam: 11:15 Constitutional: This is a well developed, well nourished patient who is awake, alert, mauro and in no acute distress. Head/Face: Normocephalic, atraumatic. Eyes: Pupils equal round and reactive to light, extra-ocular motions intact. Lids and lashes normal. Conjunctiva and sclera are non-icteric and not injected. Cornea within normal limits. Periorbital areas with no swelling, redness, or edema. ENT: Nares patent. No nasal discharge, no septal abnormalities noted. Tympanic membranes are normal and external auditory canals are clear. Oropharynx with no redness, swelling, or masses, exudates, or evidence of obstruction, uvula midline. Mucous membranes moist. Neck: Trachea midline, no thyromegaly or masses palpated, and no cervical lymphadenopathy. Supple, full range of motion without nuchal rigidity, or vertebral point tenderness. No Meningismus. Chest/axilla: Normal chest wall appearance and motion. Nontender with no deformity. No lesions are appreciated. Cardiovascular: Regular rate and rhythm with a normal S1 and S2. No gallops, murmurs, or rubs. Normal PMI, no JVD. No pulse deficits. Respiratory: Lungs have equal breath sounds bilaterally, clear to auscultation and percussion. No rales, rhonchi or wheezes noted. No increased work of breathing, no retractions or nasal flaring. Abdomen/GI: Soft, non-tender, with normal bowel sounds. No distension or tympany. No guarding or rebound. No evidence of tenderness throughout. Back: No spinal tenderness. No costovertebral tenderness. Full range of motion. Skin: Warm, dry with normal turgor. Normal color with no rashes, no lesions, and no evidence of cellulitis. MS/ Extremity: Pulses equal, no cyanosis. Neurovascular intact. Full, normal range of motion. Neuro: Awake and alert, GCS 15, oriented to person, place, time, and situation. Cranial nerves II-XII grossly intact. Motor strength 5/5 in all extremities. Sensory grossly intact. Cerebellar exam normal. Normal gait. Psych: Awake, alert, with orientation to person, place and time. Behavior, mood, and affect are within normal limits. 11:15 : CVA tenderness, is absent, Male external genitalia: penile discharge, Bladder: is normal, Sexual behavior: the patient is sexually active, and reports multiple partners. Vital Signs: 10:42 BP 124 / 66; Pulse 47; Resp 16; Temp 98.1; Pulse Ox 100% on R/A; iw MDM: 10:37 Patient medically screened. mauro 11:17 Differential diagnosis: STD. Data reviewed: vital signs, nurses notes, lab test mauro result(s). Consideration of Admission/Observation Escalation of care including admission/observation considered. I considered the following discharge prescriptions or medication management in the emergency department Medications were administered in the Emergency Department. See MAR. Test considered but Not performed: Labs: no labs. Care significantly affected by the following chronic conditions: shoulder dislocations. Counseling: I had a detailed discussion with the patient and/or guardian regarding: the historical points, exam findings, and any diagnostic results supporting the discharge/admit diagnosis, the need for outpatient follow up, for definitive care, a family practitioner. 09/19 10:53 Order name: Urinalysis w/ reflexes; Complete Time: 11:15 kj1 09/19 11:09 Order name: Urine Culture EDCA Administered Medications: 11:20 Drug: AZITHromycin PO 1 grams Route: PO; nj1 11:30 Follow up: Response: No adverse reaction nj1 11:20 Drug: Doxycycline PO 200 mg Route: PO; nj1 11:30 Follow up: Response: No adverse reaction nj1 11:21 Drug: Rocephin (cefTRIAXone) IM 1 grams Route: IM; Site: right gluteus; nj1 11:30 Follow up: Response: No adverse reaction nj1 Disposition Summary: 09/19/22 11:21 Discharge Ordered Location: Home mauro Problem: new mauro Symptoms: have improved mauro Condition: Stable mauro Diagnosis - Dysuria mauro - Contact with and (suspected) exposure to infections with a predominantly sexual [facility] mode of transmission Followup: mauro - With: Private Physician - When: 2 - 3 days - Reason: Recheck today's complaints, Continuance of care, Re-evaluation by your physician Discharge Instructions: - Discharge Summary Sheet mauro - Dysuria [facility] - Preventing Sexually Transmitted Infections, Adult [facility] Forms: - Medication Reconciliation Form [facility] - Thank You Letter [facility] - Antibiotic Education [facility] - Prescription Opioid Use [facility] Prescriptions: - Doxycycline Hyclate 100 mg Oral Tablet - take 1 tablet by ORAL route every 12 hours; 20 tablet; Refills: 0, Product mauro Selection Permitted - Cipro 500 mg Oral Tablet - take 1 tablet by ORAL route every 12 hours for 7 days; 14 tablet; Refills: 0, [facility] Product Selection Permitted Signatures: Dispatcher [employer] Remi Lopez MD MD cha Williams, Irene RN MIKAYLA iw Neli Mckeon RN RN nj1
[2022-09-19 11:56] VITALS: BP 124/66; TEMP 98.1; O2SAT 100
== END 2022-09-19 11:40 | disposition home or self-care (01) ==
LOC: ER 10:30
DX: Z20.2 Contact with and (suspected) exposure to infections with a predominantly sexual mode of transmission (principal)
CPT/HCPCS: 81001; 87086; 87088; 96372; 99284; J0696

== ENCOUNTER 2022-12-01 06:26 | Emergency (ER) | payer SELFPAY ==
--- OUTSIDE RECORDS SUMMARY | 2022-12-01 06:29 | XMS REPORT | Continuity of Care Document ---
:2000 Author Organization [facility] t Address [address] [place] [address] [place] [id number] Care Team Providers Name Role Phone Doctor Unassigned, [place] Attending Clinician Unavailable Margie Sanabria PA-C Attending Clinician Payers Payer Name Policy Type Policy Number Effective Date Expiration Date S ource Problems Condition Condition Condition Status Onset Resolution Last Treating Co mments Source Name Details Category Date Date Treatment Clinician Date Bradycardi Bradycardi Disease Active U nivers a a 3-28 ity of 00:00: [place] 00 [facility] Branch Tourette Tourette Disease Active Unive rs syndrome syndrome ity of [place] [facility] ADHD ADHD Disease Active Univers (attention (attention it y of deficit deficit [place] hyperactiv hyperactiv Me dical ity ity Branch [...] Start Date Stop Date Source Never smoker [facility] Branch Medications Ordered Filled Start Stop Current Ordering Indication Dosage Frequency Signature Comments Components Source Medication Medication Date Date Medication? Clinician (SIG) Name Name NAPROXEN Yes Take by Univer s SODIUM 1-09 mouth. ity of (ALEVE 16:57: [place] ORAL) [address] [place] [address] Branch NAPROXEN Yes Take by Univer s [...] ity of tablet 00:00: mouth [place] 00 [facility] CTIONS. Branch Take 500 mg day 1, then 250 mg days 2 to 5. fluticasone 2017-04 Yes 2{spray Use 2 Un surinder 50 0-23 } Sprays in ity of mcg/actuati 00:00: each [place] on nasal 00 nostril Medical spray daily. Branch albuterol 2017-04 Yes Can use 2 Uni vers 90 0-23 puffs 15 ity of mcg/actuati 00:00: to 20 [place] on inhaler 00 minutes Medica l before Branch exercise then 2 puffs q 4-6 hrs prn sob, cough, wheeze, bronchospa sm guanFACINE 2016-04 Yes [id number] 2mg Take 1 Univers ER (INTUNIV 0-04 tablet by ity of ER) 2 mg 00:00: mouth [place] tablet 00 every Medical evening. [place] guanFACINE 2016-04 Yes [id number] 1mg Take 1 Univers ER (INTUNIV 0-04 tablet by ity of ER) 1 mg 00:00: mouth [place] tablet 00 every Medical morning. [place] guanFACINE 2016-04 Yes [id number] 2mg Take 1 Univers ER (INTUNIV 0-04 tablet by ity of ER) 2 mg 00:00: mouth [place] tablet 00 every Medical evening. [place] guanFACINE 2016-04 Yes [id number] 1mg Take 1 Univers ER (INTUNIV 0-04 tablet by ity of ER) 1 mg 00:00: mouth [place] tablet 00 every Medical morning. [place] fluphenazin Yes .5mg Take 0.5 Un surinder e 1 mg 9-25 mg by ity of tablet 00:00: mouth. [address] fluphenazin 2013- Yes .5mg Take 0.5 Un surinder e 1 mg 9-25 mg by ity of tablet 00:00: mouth. [address] Immunizations Ordered Immunization Filled Immunization Date Status Commen ts Source Name Name [facility] 2016-10-18 Completed University 00:00:00 [id number] 2016-10-18 Completed University 00:00:00 [facility] Meningococcal B, OMV 2015-10-28 Completed Univ ersity of 00:00:00 [facility] Meningococcal B, OMV 2015-10-28 Completed Univ ersity of 00:00:00 [facility] Meningococcal 2015-10-27 Completed University of Polysaccharide 00:00:00 [facility] opal (groups A, C, Y and Branc h W-135) conjugate vaccine (MCV4P) [facility] 2015-10-27 Completed University 00:00:00 [facility] Meningococcal 2015-10-27 Completed University of Polysaccharide 00:00:00 [facility] opal (groups A, C, Y and Branc h W-135) conjugate vaccine (MCV4P) [facility] 2015-10-27 Completed University 00:00:00 [facility] Procedures Procedure Date / Time Performed Performing Clinician [facility] e EXTERNAL PROVIDER 2020-02-17 06:01:00 Doctor Unassigned, No [facility] [place] RECORDS Name [facility] Encounters Start End Encounter Admission Attending Care Care Encounter Source Date/Time Date/Time Type Type Clinicians Facility Department ID 2020-02-17 2020-02-17 Orders Doctor CONSUELO [id number] Univers 00:00:00 00:00:00 Only Unassigned, FREDO [id number] ity of [facility] [id number] [place] as [id number] [facility] 009 Branch 2020-02-10 2020-02-10 Telephone [facility] [id number] Univers 00:00:00 00:00:00 , Margie Santos [id number] it y of Pediatric [id number] [facility] [id number] Medi opal 225 Branch Results This patient has no known results.
[2022-12-01] MEDS ORDERED: NA CHLORIDE 0.9% 1,000 ML ONE (07:05)
[2022-12-01] MEDS ORDERED: MORPHINE 4 MG/ML SYR ONE (07:05)
[2022-12-01] MEDS ORDERED: ONDANSETRON 4 MG/2 ML VIAL ONE (07:05)
--- NOTE | 2022-12-01 07:34 | ER ---
Nurse's Notes [facility] Name: Fredis Buck Age: 22 yrs Sex: Male : 2000 Arrival Date: 12/01/2022 Time: 06:26 Bed 5 Private MD: Diagnosis: Other dislocation of right shoulder joint Presentation: 12/01 06:39 Chief complaint: Patient states: right shoulder pain of 7,onset 30 minutes [employer]. Patient pf1 stated was throwing some jumper cables in the back of his truck when he felt the right shoulder pain. Patient stated history of multiple right shoulder dislocation in the past. Coronavirus screen: Vaccine status: Patient reports being unvaccinated. Client denies travel out of the [place] in the last 14 days. At this time, the client does not indicate any symptoms associated with coronavirus-19. Ebola Screen: Patient negative for fever greater than or equal to 101.5 degrees Fahrenheit, and additional compatible Ebola Virus Disease symptoms. Initial Sepsis Screen: Does the patient meet any 2 criteria? No. Patient's initial sepsis screen is negative. Does the patient have a suspected source of infection? No. Patient's initial sepsis screen is negative. Risk Assessment: Do you want to hurt yourself or someone else? Patient reports no desire to harm self or others. 06:39 Method Of Arrival: Ambulatory pf1 06:39 Acuity: RICHELLE 3 pf1 07:53 Onset of symptoms was December 01, 2022. iw Historical: - Allergies: 06:42 No Known Allergies; pf1 - PMHx: 06:42 shoulder dislocations; pf1 - PSHx: 06:42 None; pf1 - Immunization history:: Adult Immunizations up to date, Client reports having NOT received the Covid vaccine. Last tetanus immunization: < 10 years ago Flu vaccine is not up to date. - Social history:: Smoking status: Patient reports the use of cigarette tobacco products, smokes one-half pack cigarettes per day, Patient/guardian denies using alcohol, street drugs. - Family history:: not pertinent. Screenin:53 [facility] ED Fall Risk Assessment (Adult) History of falling in the last 3 months, lg3 including since admission No falls in past 3 months (0 pts) Confusion or Disorientation No (0 pts) Intoxicated or Sedated Yes (3 pts) Impaired Gait No (0 pts) Mobility Assist Device Used No (0 pt) Altered Elimination No (0 pt) Score/Fall Risk Level 3 or more points = High Risk Oriented to surroundings, Maintained a safe environment, Educated pt \T\ family on fall prevention, incl call for assistance when getting out of bed. Abuse screen: Denies threats or abuse. Nutritional screening: No deficits noted. Tuberculosis screening: No symptoms or risk factors identified. Assessment: 06:54 General: Appears in no apparent distress. uncomfortable, Behavior is calm, cooperative, lg3 appropriate for age. Pain: Complains of pain in anterior aspect of right shoulder Pain does not radiate. Pain currently is 10 out of 10 on a pain scale. Pain began suddenly, 30 min ago. Is continuous, Alleviated by rest, Aggravated by movement Noted to be grimacing. Neuro: Level of Consciousness is awake, alert, obeys commands, Oriented to person, place, time, situation, Appropriate for age. Cardiovascular: No deficits noted. Respiratory: Airway is patent Respiratory effort is even, unlabored, Respiratory pattern is regular, symmetrical. GI: No deficits noted. No signs and/or symptoms were reported involving the gastrointestinal system. : No deficits noted. No signs and/or symptoms were reported regarding the genitourinary system. EENT: No deficits noted. No signs and/or symptoms were reported regarding the EENT system. Derm: No deficits noted. No signs and/or symptoms reported regarding the dermatologic system. Musculoskeletal: Range of motion: limited in right shoulder. 07:19 Reassessment: Patient appears in no apparent distress at this time. Patient and/or iw family updated on plan of care and expected duration. Pain level reassessed. Patient is alert, oriented x 3, equal unlabored respirations, skin warm/dry/pink. shoulder reduced by Dr. Segal, pt placed in shoulder immobilizer, repeat xray ordered. Vital Signs: 06:39 BP 128 / 65; Pulse 75; Resp 16; Temp 98; Pulse Ox 99% ; Weight 63.5 kg; Height 5 ft. 6 pf1 in. ; Pain 7/10; 07:15 BP 123 / 72; Pulse 68; Resp 18; Pulse Ox 100% ; ko1 06:39 Body Mass Index 22.60 (63.50 kg, 167.64 cm) pf1 06:39 Pain Scale: Adult pf1 ED Course: 06:27 Patient arrived in ED. im 06:42 Triage completed. pf1 06:52 Rafi Monroy MD is Attending Physician. sp4 06:53 Yanci Mahoney, RN is Primary Nurse. lg3 06:53 Arm band placed on left wrist. lg3 06:53 EKG done. Inserted saline lock: 20 gauge in left antecubital area, using aseptic lg3 technique. Oxygen administration via nasal cannula \T\ 2L/min. 06:54 Patient has correct armband on for positive identification. Bed in low position. Call lg3 light in reach. Client placed on continuous cardiac and pulse oximetry monitoring. NIBP monitoring applied. 07:06 Attending Physician role handed off by Rafi Monroy MD sp3 07:06 Lewis Segal MD is Attending Physician. sp3 07:07 Shoulder Right (2 View) XRAY In Process Unspecified. EDMS 07:33 Shoulder Right (2 View) XRAY In Process Unspecified. EDMS 07:53 Provided Education on: sling. iw 07:53 No provider procedures requiring assistance completed. IV discontinued, intact, iw bleeding controlled, No redness/swelling at site. Pressure dressing applied. Administered Medications: 06:57 Drug: NS 0.9% IV 1000 ml Route: IV; Rate: 1 bolus; Site: left antecubital; lg3 07:54 Follow up: IV Status: Completed infusion iw 06:58 Drug: morphine IVP or IV 4 mg Route: IVP; Infused Over: 4 mins; Site: left antecubital; lg3 06:58 Drug: Ondansetron IVP 4 mg Route: IVP; Site: left antecubital; lg3 Medication: 06:54 VIS not applicable for this client. lg3 Outcome: 07:34 Discharge ordered by . sp3 07:53 Discharged to home ambulatory. iw 07:53 Condition: good 07:53 Discharge instructions given to patient, Instructed on discharge instructions, follow up and referral plans. Demonstrated understanding of instructions, follow-up care. 07:53 Patient left the ED. iw Signatures: Dispatcher [employer] EDMS Jazzy Arreguin RN RN iw Yanci Mahoney, RN RN lg3 Lewis Segal MD MD sp3 Florence Galvan RN RN ko1 Keke Nichols RN RN pf1 Rafi Monroy MD MD sp4 Janie Talbert Corrections: (The following items were deleted from the chart) 06:44 06:42 Allergies: Aspirin; pf1 pf1
--- NOTE | 2022-12-01 07:34 | EDPHYS ---
Physician Documentation [facility] Name: Fredis Buck Age: 22 yrs Sex: Male : 2000 Arrival Date: 12/01/2022 Time: 06:26 Bed 5 Private MD: ED Physician Lewis Segal HPI: 12/01 06:52 This 22 yrs old Black Male presents to ER via Ambulatory with complaints of Shoulder sp4 Pain. 07:11 This 22 yrs old Black Male presents to ER via Ambulatory with complaints of Shoulder sp3 Pain. 06:52 22-year-old black male presents with acute recurrent dislocation of the right shoulder. sp4 Dislocation occurred just prior to arrival this morning. Patient states he was helping his girlfriend with jumping cables on a car. No additional injury. Patient reported previous multiple dislocations of the same shoulder secondary to instability.. Historical: - Allergies: 06:42 No Known Allergies; pf1 - PMHx: 06:42 shoulder dislocations; pf1 - PSHx: 06:42 None; pf1 - Immunization history:: Adult Immunizations up to date, Client reports having NOT received the Covid vaccine. Last tetanus immunization: < 10 years ago Flu vaccine is not up to date. - Social history:: Smoking status: Patient reports the use of cigarette tobacco products, smokes one-half pack cigarettes per day, Patient/guardian denies using alcohol, street drugs. - Family history:: not pertinent. ROS: 06:52 Constitutional: Negative for fever, chills, and weight loss, MS/Extremity: Right sp4 shoulder pain, deformity, and dislocation 06:52 All other systems are negative. Exam: 06:52 Constitutional: This is a well developed, well nourished patient who is awake, alert, sp4 and in no acute distress. Head/Face: Normocephalic, atraumatic. Eyes: Pupils equal round and reactive to light, extra-ocular motions intact. Lids and lashes normal. Conjunctiva and sclera are not injected. Cornea within normal limits. Periorbital areas with no swelling, redness, or edema. ENT: Nares patent. No nasal discharge, no septal abnormalities noted. Tympanic membranes are normal and external auditory canals are clear. Oropharynx with no redness, swelling, or masses, exudates, or evidence of obstruction, uvula midline. Mucous membranes moist. Neck: Trachea midline, no thyromegaly or masses palpated, and no cervical lymphadenopathy. Supple, full range of motion without nuchal rigidity, or vertebral point tenderness. Chest/axilla: Normal chest wall appearance and motion. Nontender with no deformity. No lesions are appreciated. Cardiovascular: Regular rate and rhythm with a normal S1 and S2. No gallops, murmurs, or rubs. Normal PMI, no JVD. No pulse deficits. Respiratory: Lungs have equal breath sounds bilaterally, clear to auscultation and percussion. No rales, rhonchi or wheezes noted. No increased work of breathing, no retractions or nasal flaring. Abdomen/GI: Soft, non-tender, with normal bowel sounds. No distension or tympany. No guarding or rebound. No evidence of tenderness throughout. Back: No spinal tenderness. No costovertebral tenderness. Skin: Warm, dry with normal turgor. Normal color with no rashes, no lesions, and no evidence of cellulitis. MS/ Extremity: Pulses equal, no cyanosis. Neurovascular intact. Positive right shoulder sulcus sign indicative of right anterior shoulder dislocation. Neurovascular components are intact. No sign of other injury Neuro: Awake and alert, GCS 15, oriented to person, place, time, and situation. Cranial nerves II-XII grossly intact. Motor strength 5/5 in all extremities. Sensory grossly intact. Psych: Awake, alert, with orientation to person, place and time. Behavior, mood, and affect are within normal limits 06:55 ECG was reviewed by the Attending Physician. EKG time 0 651. There is sinus sp4 bradycardia with sinus arrhythmia at a rate of 55. No ventricular ectopy. Muscle tremor artifact Vital Signs: 06:39 BP 128 / 65; Pulse 75; Resp 16; Temp 98; Pulse Ox 99% ; Weight 63.5 kg; Height 5 ft. 6 pf1 in. ; Pain 7/10; 07:15 BP 123 / 72; Pulse 68; Resp 18; Pulse Ox 100% ; ko1 06:39 Body Mass Index 22.60 (63.50 kg, 167.64 cm) pf1 06:39 Pain Scale: Adult pf1 MDM: 07:06 Patient medically screened. sp3 07:11 Data reviewed: vital signs, nurses notes. ED course: Arrived to get signout from night sp3 physician for 22-year-old male with right shoulder dislocation and anterior fashion. X-rays reviewed and demonstrated no fracture. Patient received morphine and Zofran prior to my arrival. I was able to successfully reduce right shoulder using adduction with external rotation successfully. We will obtain repeat x-ray for confirmation of reduction. Distal neurovascular exam is normal. Patient has been placed in a sling. Will discharge to orthopedic follow-up as needed.. 07:33 ED course: Postreduction x-ray demonstrates adequate reduction without Hill-Sachs sp3 deformity rather reduction related injury. Y view demonstrates adequate overlap anterior view demonstrates proper positioning. Patient feels better and distal neurovascular exam remains intact and normal. Patient is in a sling and will be safely discharged at this time.. 12/01 06:42 Order name: Shoulder Right (2 View) XRAY; Complete Time: 07:49 sp4 12/01 07:10 Order name: Shoulder Right (2 View) XRAY; Complete Time: 07:49 sp3 12/01 06:55 Order name: Conscious Sedation; Complete Time: 06:58 sp4 12/01 06:55 Order name: EKG - Nurse/Tech; Complete Time: 06:57 sp4 12/01 07:11 Order name: Sling; Complete Time: 07:14 sp3 EC:55 Rate is 55 beats/min. Rhythm is irregular, Sinus bradycardia. QRS [place] is Normal. NM sp4 interval is normal. QRS interval is normal. QT interval is normal. T waves are Normal. No ST changes noted. Clinical impression: No evidence of ischemia. Interpreted by me. Administered Medications: 06:57 Drug: NS 0.9% IV 1000 ml Route: IV; Rate: 1 bolus; Site: left antecubital; lg3 07:54 Follow up: IV Status: Completed infusion iw 06:58 Drug: morphine IVP or IV 4 mg Route: IVP; Infused Over: 4 mins; Site: left antecubital; lg3 06:58 Drug: Ondansetron IVP 4 mg Route: IVP; Site: left antecubital; lg3 Disposition Summary: 12/01/22 07:34 Discharge Ordered Location: Home sp3 Condition: Stable sp3 Diagnosis - Other dislocation of right shoulder joint sp3 Followup: sp3 - With: Private Physician - When: Upon discharge from the Emergency Department - Reason: Continuance of care Discharge Instructions: - Discharge Summary Sheet sp3 - Shoulder Dislocation sp3 Forms: - Medication Reconciliation Form sp3 - Thank You Letter sp3 - Antibiotic Education sp3 - Prescription Opioid Use sp3 - Patient Portal Instructions sp3 - Leadership Thank You Letter sp3 Signatures: Dispatcher [employer] Yanci Robbins RN RN lg3 Lewis Segal MD MD sp3 Keke Nichols RN RN pf1 Rafi Monroy MD MD sp4 Jazzy Arreguin RN iw Corrections: (The following items were deleted from the chart) 06:44 06:42 Allergies: Aspirin; pf1 pf1
--- NOTE | 2022-12-01 07:47 | RAD REPORT ---
EXAM DESCRIPTION: Shoulder Right 2 View - 12/01/2022 7:05 am CLINICAL HISTORY: dislocation, recurrent COMPARISON: Shoulder Right 2 View dated 09/09/2020; Shoulder Right 2 View dated 12/01/2022 TECHNIQUE: Single view of the right shoulder. FINDINGS: No acute displaced fractures are appreciated. Anterior dislocation of the humeral head rel ative to the glenoid. AC joint is normal in appearance. No acute or suspicious findings. IMPRESSION: Anterior shoulder dislocation as above.
--- NOTE | 2022-12-01 07:48 | RAD REPORT ---
EXAM DESCRIPTION: Shoulder Right 2 View - 12/01/2022 7:32 am CLINICAL HISTORY: Post Reduction COMPARISON: Shoulder Right 2 View dated 12/01/2022; Shoulder Right 2 View dated 06/22/2020; Shoulder Right 2 View dated 09/09/2020 TECHNIQUE: Internal and external rotation views of the right shoulder were obtained. FINDINGS: There is no fracture or dislocation, with interval improved alignment since the prior exam . AC joint show slight widening, could be related to the acquired projection, or underlying joint eff usion. Alignment is maintained. No acute or suspicious findings. Periarticular soft tissue swelling. IMPRESSION: Interval improvement of alignment of the glenohumeral joint following closed reduction. Slight widening of the AC joint as above.
[2022-12-01 08:05] VITALS: TEMP 98
[2022-12-01 08:07] VITALS: BP 123/72; O2SAT 100
--- NOTE | 2022-12-05 17:01 | EKG ---
Test Date: 2022-12-01 Test Time: 06:51:22 Quill Stripper: YOKO MEASUREMENT RESULTS: Intervals: Rate: 55 WA: 150 QRSD: 86 QT: 412 QTc: 394 [place]: P: 61 WA: 150 QRS: 58 T: 40 INTERPRETIVE STATEMENTS: Sinus bradycardia with marked sinus arrhythmia Septal infarct, age undetermined Abnormal ECG Compared to ECG 12/14/2014 10:35:03 Myocardial infarct finding now present Electronically Signed On 12-05-22 16:48:59 CDT by Caden Kathleen
== END 2022-12-01 07:53 | disposition home or self-care (01) ==
LOC: ER 06:26
PROC: 0RSJXZZ Reposition Right Shoulder Joint, External Approach (ICD-10-PCS; principal; 2022-12-01)
DX: S43.084A Other dislocation of right shoulder joint, initial encounter (principal); F17.210 Nicotine dependence, cigarettes, uncomplicated
CPT/HCPCS: 93005; 96361; 96374; 96375; 99285; J2405; J7030

== ENCOUNTER → 2023-04-22 | Emergency (ER) | payer SELFPAY ==
[~2023-04-22] MED LIST: MORPHINE 4 MG/ML SYR ONE; ONDANSETRON 4 MG (ODT) TAB ONE
--- OUTSIDE RECORDS SUMMARY | 2023-04-22 17:40 | XMS REPORT | Continuity of Care Document ---
Author Name Unknown Address [address] [place] [address] [address] thconnect Address [address] [facility]. [address] [place] [address] Care Team Providers Care Staff Midwife Name Role Phone Doctor Unassigned, [place] Attending Clinician Yanira Sanabria PA-C, Margie Varner Attending Clinician Payers Payer Name Policy Type Policy Number Effective Date Expirati on Date Source Problems Condition Name Condition Details Condition Category Status Onset Date Resolution Date Last Treatment Date Treating Clinician Comments Source Bradycardi a Bradycardi a Disease Active 06-27 00:00: 00 [facility] Tourette syndrome Tourette syndrome Disease Active [facility] ADHD (attention deficit hyperactiv ity disorder) ADHD (attention deficit hyperactiv ity disorder) Disease Active [facility] Social History Social Habit Start Date Stop Date Quantity Comments Source Sex Assigned At [facility] Tobacco use and exposure 2018-04-10 00:00:00 2018-04-10 00:00:00 Never used [facility] Smoking Status Start Date Stop Date Source Never smoker [facility] Medications Ordered Medication Name Filled Medication Name Start Date Stop Date Current Medication? Ordering Clinician Indication Dosage Frequency Signature (SIG) Comments Components Source NAPROXEN SODIUM (ALEVE ORAL) 04-10 16:57: 46 Yes Take by mouth. [facility] NAPROXEN SODIUM (ALEVE ORAL) 04-10 16:57: 46 Yes Take by mouth. [facility] azithromyci n 250 mg tablet 2017-04 0 00:00: 00 Yes 250mg Take 1 tablet by mouth SEE-INSTRU CTIONS. Take 500 mg day 1, then 250 mg days 2 to 5. [facility] fluticasone 50 mcg/actuati on nasal spray 2017-04 00:00: 00 Yes 2{spray } Use 2 Sprays in each nostril daily. [facility] albuterol 90 mcg/actuati on inhaler 2017-04 00:00: 00 Yes Can use 2 puffs 15 to 20 minutes before exercise then 2 puffs q 4-6 hrs prn sob, cough, wheeze, bronchospa sm [facility] azithromyci n 250 mg tablet 2017-04 00:00: 00 Yes 250mg Take 1 tablet by mouth SEE-INSTRU CTIONS. Take 500 mg day 1, then 250 mg days 2 to 5. [facility] fluticasone 50 mcg/actuati on nasal spray 2017-04 00:00: 00 Yes 2{spray } Use 2 Sprays in each nostril daily. [facility] albuterol 90 mcg/actuati on inhaler 2017-04 00:00: 00 Yes Can use 2 puffs 15 to 20 minutes before exercise then 2 puffs q 4-6 hrs prn sob, cough, wheeze, bronchospa sm [facility] guanFACINE ER (INTUNIV ER) 2 mg tablet 2016-04 00:00: 00 Yes [id number] 2mg Take 1 tablet by mouth every evening. [facility] guanFACINE ER (INTUNIV ER) 1 mg tablet 2016-04 00:00: 00 Yes [id number] 1mg Take 1 tablet by mouth every morning. [facility] guanFACINE ER (INTUNIV ER) 2 mg tablet 2016-04 00:00: 00 Yes [id number] 2mg Take 1 tablet by mouth every evening. [facility] guanFACINE ER (INTUNIV ER) 1 mg tablet 2016-04 00:00: 00 Yes [id number] 1mg Take 1 tablet by mouth every morning. [facility] fluphenazin e 1 mg tablet 12-25 00:00: 00 Yes .5mg Take 0.5 mg by mouth. [facility] fluphenazin e 1 mg tablet 12-25 00:00: 00 Yes .5mg Take 0.5 mg by mouth. [facility] Procedures Procedure Date / Time Performed Performing Clinicia n Source EXTERNAL PROVIDER RECORDS 2020-02-17 06:01:00 Doctor Unassigned, [place] [facility] Encounters Start Date/Time End Date/Time Encounter Type Admission Type Attending [facility] Care Facility Care Department Encounter ID Source 2020-02-17 00:00:00 2020-02-17 00:00:00 Orders Only Doctor Unassigned, [place] [facility] [id number] [facility] 2020-02-10 00:00:00 2020-02-10 00:00:00 Telephone Margie Sanabria [facility] [id number] [facility]
--- NOTE | 2023-04-22 18:45 | RAD REPORT ---
EXAM DESCRIPTION: RAD - Shoulder Right 2 View - 04/22/2023 6:17 pm CLINICAL HISTORY: PAIN COMPARISON: Shoulder Right 2 View dated 12/01/2022 FINDINGS/IMPRESSION: Anterior inferior shoulder dislocation. No fracture identified. Several calcifi ed lung nodules noted.
--- NOTE | 2023-04-22 18:47 | EDPHYS ---
Physician Documentation [facility] Name: Fredis Buck Age: 22 yrs Sex: Male : 2000 Arrival Date: 04/22/2023 Time: 17:37 Bed 3 Private MD: ED Physician Alireza Guy HPI: 04/22 18:23 This 22 yrs old Black Male presents to ER via Ambulatory with complaints of Shoulder rn Injury. 18:23 The patient or guardian complains of decreased range of motion, pain. right shoulder. rn Onset: The symptoms/episode began/occurred just prior to arrival. Modifying factors: the symptoms are alleviated by remaining still, The symptoms are aggravated by movement. Severity of symptoms: At their worst the symptoms were moderate, in the emergency department the symptoms are unchanged. The patient has experienced similar episodes in the past. 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 Happens about 3 times each year. Reports happened again and unable to get it back in himself. No direct fall or significant trauma this time. Patient states when left arm above is that this happens.. Historical: - Allergies: 17:43 No Known Allergies; ko1 - Home Meds: 17:43 None [Active]; ko1 - PMHx: 17:43 shoulder dislocations; ko1 - PSHx: 17:43 None; ko1 - Immunization history:: Adult Immunizations up to date. - Social history:: Smoking status: Reported history of juuling and/or vaping. - Family history:: not pertinent. - Hospitalizations: : No recent hospitalization is reported. ROS: 18:24 Constitutional: Negative for fever, chills, and weight loss, MS/Extremity: Positive for rn right shoulder dislocation Neuro: Negative for weakness or numbness Exam: 18:24 Constitutional: This is a well developed, well nourished patient who is awake, alert, rn holding right arm and passive flexion MS/ Extremity: Pulses equal, no cyanosis. Right arm passively flexed, humeral head palpated anterior with dislocation evident Vital Signs: 17:46 BP 131 / 78; Pulse 79; Resp 14; Temp 98.3; Pulse Ox 99% ; ko1 Procedures: 18:24 Reduction: of the right shoulder, using traction, manipulation, Extension and rotation rn of right shoulder, Immobilized with sling, Patient tolerated well. Post reduction film - reveals normal alignment. MDM: 17:40 Patient medically screened. kb 18:45 Differential diagnosis: Anterior dislocation with fracture, Anterior dislocation rn without fracture. Data reviewed: vital signs, nurses notes, radiologic studies, plain films, and as a result, I will discharge patient. Independent interpretation of the following test(s) in the Emergency Department X-Ray: My interpretation is X-ray images of right shoulder shows an anterior dislocation per my interpretation. Counseling: I had a detailed discussion with the patient and/or guardian regarding the historical points, exam findings, and any diagnostic results supporting the discharge/admit diagnosis, radiology results, the need for outpatient follow up, to return to the emergency department if symptoms worsen or persist or if there are any questions or concerns that arise at home. Response to treatment: the patient's symptoms have markedly improved after treatment, and as a result, I will discharge patient. 04/22 17:44 Order name: Shoulder Right (2 View) XRAY; Complete Time: 18:47 kb 04/22 18:24 Order name: Shoulder Right (2 View) XRAY eb 04/22 18:26 Order name: Sling; Complete Time: 18:58 rn Administered Medications: 18:00 Drug: Ondansetron Oral Disintegrating Tablet Oral Disintegrating Tablet 4 mg PO once iw Route: PO; 18:30 Follow up: Response: No adverse reaction iw 18:00 Drug: morphine IM 4 mg IM once Route: IM; Site: left deltoid; iw 18:30 Follow up: Response: No adverse reaction; Pain is decreased iw Disposition Summary: 04/22/23 18:46 Discharge Ordered Notes: Location: Home rn Problem: new rn Symptoms: have improved rn Condition: Stable rn Diagnosis - Recurrent dislocation, right shoulder rn Followup: rn - With: Judson Worrell MD - When: As needed - Reason: Recheck today's complaints, Re-evaluation by your physician Discharge Instructions: - Discharge Summary Sheet rn - Shoulder Dislocation rn - How to Use a Sling rn Forms: - Medication Reconciliation Form rn - Thank You Letter rn - Antibiotic wellness nurse rn - Prescription Opioid Use rn - Patient Portal Instructions rn - Leadership Thank You Letter rn Signatures: Dispatcher [employer] Ale Rocha, TANVIRC MOTOR OPERATOR-Jazzy Dubois RN RN iw Nieto, Roman, MD MD rn Oliver, Kathy, RN RN ko1 Corrections: (The following items were deleted from the chart) 18:25 18:24 Constitutional: This is a well developed, well nourished patient who is awake, rn alert, holding right arm and passive flexion MS/ Extremity: Pulses equal, no cyanosis. Right arm passively flexed, humeral head palpated anterior with dislocation evident rn
--- NOTE | 2023-04-22 18:47 | ER ---
Nurse's Notes [facility] Name: Fredis Buck Age: 22 yrs Sex: Male : 2000 Arrival Date: 04/22/2023 Time: 17:37 Bed 3 Private MD: Diagnosis: Recurrent dislocation, right shoulder Presentation: 04/22 17:41 Chief complaint: Patient states: right shoulder popped out of place about 30 minutes ko1 ago, it does it randomly from an old basketball injury. Coronavirus screen: At this time, the client does not indicate any symptoms associated with coronavirus-19. Ebola Screen: No symptoms or risks identified at this time. Initial Sepsis Screen: Does the patient meet any 2 criteria? No. Patient's initial sepsis screen is negative. Does the patient have a suspected source of infection? No. Patient's initial sepsis screen is negative. Risk Assessment: Do you want to hurt yourself or someone else? Patient reports no desire to harm self or others. Onset of symptoms was April 22, 2023. 17:41 Method Of Arrival: Ambulatory ko1 17:41 Acuity: RICHELLE 3 ko1 17:41 Acuity: RICHELLE 2 ko1 Triage Assessment: 17:43 General: Appears in no apparent distress. uncomfortable, Behavior is calm, cooperative, ko1 appropriate for age. Pain: Complains of pain in anterior aspect of right shoulder and posterior aspect of right shoulder. Musculoskeletal: Bony deformity noted of posterior aspect of right shoulder. Injury Description: Deformity sustained to posterior aspect of right shoulder is displaced, was sustained 30-60 minutes ago. Historical: - Allergies: 17:43 No Known Allergies; ko1 - Home Meds: 17:43 None [Active]; ko1 - PMHx: 17:43 shoulder dislocations; ko1 - PSHx: 17:43 None; ko1 - Immunization history:: Adult Immunizations up to date. - Social history:: Smoking status: Reported history of juuling and/or vaping. - Family history:: not pertinent. - Hospitalizations: : No recent hospitalization is reported. Screenin:05 [facility] ED Fall Risk Assessment (Adult) Score/Fall Risk Level 0 - 2 = Low Risk. Abuse iw screen: Denies threats or abuse. Denies injuries from another. Nutritional screening: No deficits noted. Tuberculosis screening: No symptoms or risk factors identified. Assessment: 19:05 Reassessment: Patient appears in no apparent distress at this time. Patient and/or iw family updated on plan of care and expected duration. Pain level reassessed. Patient is alert, oriented x 3, equal unlabored respirations, skin warm/dry/pink. Patient states feeling better. Patient states symptoms have improved. Vital Signs: 17:46 BP 131 / 78; Pulse 79; Resp 14; Temp 98.3; Pulse Ox 99% ; ko1 ED Course: 17:39 Patient arrived in ED. mg5 17:40 Ale Santos FNP-C is PHCP. kb 17:40 Alireza Guy MD is Attending Physician. kb 17:42 Triage completed. ko1 17:43 Arm band placed on right wrist. Patient placed in an exam room, on a stretcher, on ko1 personnel monitor, on pulse oximetry, Patient notified of wait time. 17:52 Jazzy Arreguin RN is Primary Nurse. iw 18:18 Shoulder Right (2 View) XRAY In Process Unspecified. EDMS 18:46 Judson Worrell MD is Referral Physician. rn 18:54 Shoulder Right (2 View) XRAY In Process Unspecified. EDMS 19:05 Assist provider with reduction of right shoulder using manipulation, Performed by Alireza Guy MD. Patient did not have IV access during this emergency room visit. 19:06 Patient has correct armband on for positive identification. iw Administered Medications: 18:00 Drug: Ondansetron Oral Disintegrating Tablet Oral Disintegrating Tablet 4 mg PO once iw Route: PO; 18:30 Follow up: Response: No adverse reaction iw 18:00 Drug: morphine IM 4 mg IM once Route: IM; Site: left deltoid; iw 18:30 Follow up: Response: No adverse reaction; Pain is decreased iw Medication: 19:05 VIS not applicable for this client. iw Outcome: 18:46 Discharge ordered by . rn 19:06 Discharged to home ambulatory, with family, iw 19:06 Condition: good 19:06 Discharge instructions given to patient, family, Instructed on discharge instructions, follow up and referral plans. Demonstrated understanding of instructions, follow-up care, 19:06 Patient left the ED. iw Signatures: Dispatcher [employer] EDMS Ale Santos FNP-C FNP-Ckb Jazzy Arreguin RN RN iw Nieto, Roman, MD MD rn Cole, Florence, MIKAYLA RN pardeep1 Charo Estrella mg5
--- NOTE | 2023-04-22 19:49 | RAD REPORT ---
EXAM DESCRIPTION: RAD - Shoulder Right 2 View - 04/22/2023 6:52 pm CLINICAL HISTORY: post reduction COMPARISON: Shoulder Right 2 View dated 04/22/2023 FINDINGS/IMPRESSION: No acute fracture. The shoulder has been relocated. No significant focal degene rative changes.
[2023-04-22 20:22] VITALS: BP 131/78; TEMP 98.3; O2SAT 99
== END ==
LOC: ER 17:37
PROC: 0RSJXZZ Reposition Right Shoulder Joint, External Approach (ICD-10-PCS; principal; 2023-04-22)
DX: M24.411 Recurrent dislocation, right shoulder (principal)
CPT/HCPCS: 96372; 99284; Q0162

== ENCOUNTER 2024-03-31 16:48 | Emergency (ER) | payer SELFPAY ==
--- NOTE | 2024-03-31 18:49 | RAD REPORT ---
EXAMINATION: Shoulder Right 2+ Views CLINICAL INDICATION: Male, 23 years old. pain, possible dislocation RIGHT COMPARISON: No prior exam. FINDINGS: No acute fracture. Similar deformity at the greater tuberosity. Right-sided anterior inferior shoulder dislocation. No significant focal degenerative change. Other: Calcified lung nodules noted in the right lung. IMPRESSION: Right shoulder anterior/inferior dislocation. No fracture identified.
--- NOTE | 2024-03-31 21:40 | RAD REPORT ---
EXAMINATION: Shoulder Right 2+ Views CLINICAL INDICATION: Male, 23 years old. Post Reduction RIGHT COMPARISON: No prior exam. FINDINGS: The right shoulder has been relocated. No acute fracture identified. IMPRESSION: Relocated right shoulder.
--- NOTE | 2024-03-31 21:42 | EDPHYS ---
Physician Documentation [facility] Name: Fredis Buck Age: 23 yrs Sex: Male : 2000 Arrival Date: 03/31/2024 Time: 16:48 Bed 4 Private MD: ED Physician Alireza Guy HPI: 03/31 18:01 This 23 yrs old Black Male presents to ER via Ambulatory with complaints of right dr5 shoulder pain. 18:01 Onset: The symptoms/episode began/occurred acutely. Patient reports he was dr5 skateboarding and landed on to right hand / wrist dislocating right shoulder. Patient hasn't taken any medications prior to arrival. Patient states he has popped his right shoulder out multiple times.. Historical: - Allergies: 18:06 No Known Allergies; jl7 - Home Meds: 18:06 None [Active]; jl7 - PMHx: 18:02 shoulder dislocations; dr5 - PSHx: 18:06 None; jl7 - Immunization history:: Adult Immunizations up to date. - Infectious Disease History:: Denies. - Social history:: Smoking status: Patient denies any tobacco usage or history of. ROS: 18:02 Constitutional: as per hpi dr5 Exam: 18:02 Constitutional: This is a well developed, well nourished patient who is awake, alert, dr5 and in no acute distress. Head/Face: Normocephalic, atraumatic. Eyes: Pupils equal round and reactive to light, extra-ocular motions intact. Lids and lashes normal. Conjunctiva and sclera are non-icteric and not injected. Cornea within normal limits. Periorbital areas with no swelling, redness, or edema. ENT: Nares patent. No nasal discharge, no septal abnormalities noted. Tympanic membranes are normal and external auditory canals are clear. Oropharynx with no redness, swelling, or masses, exudates, or evidence of obstruction, uvula midline. Mucous membranes moist. Chest/axilla: Normal chest wall appearance and motion. Nontender with no deformity. No lesions are appreciated. Cardiovascular: Regular rate and rhythm with a normal S1 and S2. Normal PMI, no JVD. No pulse deficits. Respiratory: Lungs have equal breath sounds bilaterally, clear to auscultation. No rales, rhonchi or wheezes noted. No increased work of breathing, no retractions or nasal flaring. Back: No spinal tenderness. No costovertebral tenderness. Full range of motion. 18:02 Neuro: Awake and alert, GCS 15, oriented to person, place, time, and situation. Cranial nerves II-XII grossly intact. Motor strength 5/5 in all extremities. Sensory grossly intact. Cerebellar exam normal. Normal gait. 18:02 Musculoskeletal/extremity: Extremities: grossly normal except: noted in the anterior aspect of right shoulder: decreased ROM, deformity, pain, swelling, tenderness, ROM: limited active range of motion, in the right wrist, Circulation is intact in all extremities. the anterior aspect of right shoulder Sensation intact. Vital Signs: 18:01 BP 136 / 83; Pulse 98; Resp 17; Temp 97.6; Pulse Ox 100% ; Weight 65.77 kg; Height 5 jl7 ft. 6 in. ; Pain 7/10; 20:10 BP 132 / 88; Pulse 64; Resp 18; Pulse Ox 100% ; al5 20:30 BP 102 / 68; Pulse 50; Resp 18; Pulse Ox 100% on R/A; al5 21:00 BP 108 / 63; Pulse 51; Resp 17; Pulse Ox 100% on R/A; al5 21:58 BP 134 / 72; Pulse 50; Resp 16; Temp 97.6; Pulse Ox 97% ; Pain 0/10; bm8 18:01 Body Mass Index 23.40 (65.77 kg, 167.64 cm) jl7 18:01 Pain Scale: Adult jl7 21:58 Pain Scale: Adult bm8 [place] Coma Score: 21:58 Eye Response: spontaneous(4). Motor Response: obeys commands(6). Verbal Response: bm8 oriented(5). Total: 15. Procedures: 18:01 Reduction: of the right shoulder, using traction, manipulation, supination, Immobilized dr5 with sling, Patient tolerated well. Post reduction film - reveals improved alignment. and myself reduced right shoulder. Post x-ray film revealed successful reduction.. MDM: 18:01 Differential diagnosis: viral Infection, Closed / Open Fracture, Dislocation, dr5 Contusion. Data reviewed: vital signs, nurses notes, radiologic studies, plain films, I have discussed the patient's presentation/case with the attending Emergency Department Physician;. Care significantly affected by the following Social Determinants of Health: Poor access to healthcare and/or lack of insurance, Poor access to transportation, Problems related to employment. Counseling: I had a detailed discussion with the patient and/or guardian regarding the historical points, exam findings, and any diagnostic results supporting the discharge/admit diagnosis, the presence of at least one elevated blood pressure reading (>120/80) during this emergency department visit, radiology results, the need for outpatient follow up, for definitive care, a family practitioner, a orthopedic surgeon, to return to the emergency department if symptoms worsen or persist or if there are any questions or concerns that arise at home. Response to treatment: the patient's symptoms have resolved after treatment. ED course: Anterior right shoulder dislocation was reduced and placed in sling. Patient's pain has resolved. Sling placed prior to discharge. Recommended patient follow-up with primary care to have right shoulder managed and possible surgical effects. All questions answered.. 18:05 Medical Screening Exam initiated dr5 03/31 17:57 Order name: XRAY Shoulder RIGHT 2 view; Complete Time: 18:49 rn 03/31 21:21 Order name: Shoulder Right (2 View) XRAY; Complete Time: 21:42 dr5 03/31 19:04 Order name: IV Saline Lock; Complete Time: 20:31 dr5 03/31 21:21 Order name: Sling; Complete Time: 21:46 dr5 Administered Medications: No medications were administered Disposition: 04/01 07:08 Co-signature as Attending Physician, Alierza Guy MD I reviewed the patient's care rn provided by the Advanced Practice Provider and agree with the diagnosis and treatment plan. Disposition Summary: 03/31/24 21:42 Discharge Ordered Notes: Location: Home dr5 Condition: Stable dr5 Diagnosis - Recurrent dislocation, right shoulder dr5 Followup: dr5 - With: Emergency Department - When: As needed - Reason: Worsening of condition Followup: dr5 - With: Private Physician - When: 1 - 2 days - Reason: Recheck today's complaints, Continuance of care, Re-evaluation by your physician Discharge Instructions: - Discharge Summary Sheet dr5 - Shoulder Dislocation dr5 - How to Use a Sling, [id number] dr5 Forms: - Medication Reconciliation Form dr5 - Patient Portal Instructions dr5 - Leadership Thank You Letter dr5 Signatures: Dispatcher [employer] EDMS Guy, Alireza, MD MD rn Cunningham, Jahala, RN RN jl7 Godoy, Jax, CLERICAL CAR CHECKER-C CLERICAL CAR CHECKER-Cdr5 Corrections: (The following items were deleted from the chart) 03/31 18:01 18:01 Wrist Right 3 View+RAD.RAD.BRZ ordered. EDMS EDMS 18:33 18:02 Musculoskeletal/extremity: Extremities: grossly normal except: noted in the right dr5 wrist: decreased ROM, pain, swelling, tenderness, ROM: limited active range of motion, in the right wrist, Circulation is intact in all extremities. the right wrist Sensation intact. dr5 21:27 19:11 Conscious Sedation ordered. dr5 al5 22:50 18:01 Patient reports he was skateboarding and landed on to right hand / wrist. Patient dr5 hasn't taken any medications prior to arrival. . dr5 22:50 18:01 This 23 yrs old Black Male presents to ER via Ambulatory with complaints of right dr5 wrist pain. dr5 22:52 18:01 Reduction: of the right shoulder, using traction, manipulation, supination, dr5 Immobilized with sling, Patient tolerated well. Post reduction film - reveals improved alignment. dr5
--- NOTE | 2024-03-31 21:42 | ER ---
Nurse's Notes [facility] Name: Fredis Buck Age: 23 yrs Sex: Male : 2000 Arrival Date: 03/31/2024 Time: 16:48 Bed 4 Private MD: Diagnosis: Recurrent dislocation, right shoulder Presentation: 03/31 18:01 Chief complaint: Patient states: fell while skateboarding about an hour ago. jl7 Coronavirus screen: At this time, the client does not indicate any symptoms associated with coronavirus-19. Ebola Screen: No symptoms or risks identified at this time. Initial Sepsis Screen: Does the patient meet any 2 criteria? No. Patient's initial sepsis screen is negative. Does the patient have a suspected source of infection? No. Patient's initial sepsis screen is negative. Risk Assessment: Do you want to hurt yourself or someone else? Patient reports no desire to harm self or others. Onset of symptoms was March 31, 2024. 18:01 Method Of Arrival: Ambulatory [facility] 18:01 Acuity: RICHELLE 4 jl7 Triage Assessment: 18:06 General: Appears in no apparent distress. uncomfortable, Behavior is calm, cooperative, jl7 appropriate for age. Pain: Complains of pain in right arm Pain currently is 7 out of 10 on a pain scale. Historical: - Allergies: 18:06 No Known Allergies; jl7 - Home Meds: 18:06 None [Active]; jl7 - PMHx: 18:02 shoulder dislocations; dr5 - PSHx: 18:06 None; jl7 - Immunization history:: Adult Immunizations up to date. - Infectious Disease History:: Denies. - Social history:: Smoking status: Patient denies any tobacco usage or history of. Screenin:04 [facility] ED Fall Risk Assessment (Adult) History of falling in the last 3 months, al5 including since admission Yes- single mechanical fall (1 pt) Confusion or Disorientation No (0 pts) Intoxicated or Sedated No (0 pts) Impaired Gait No (0 pts) Mobility Assist Device Used No (0 pt) Altered Elimination No (0 pt) Score/Fall Risk Level 0 - 2 = Low Risk Oriented to surroundings, Maintained a safe environment, Hourly rounding (assess needs \T\ fall precautionary measures) done. Abuse screen: Denies threats or abuse. Denies injuries from another. Nutritional screening: No deficits noted. Tuberculosis screening: No symptoms or risk factors identified. Assessment: 20:05 General: Appears in no apparent distress. uncomfortable, well groomed, Behavior is al5 calm, cooperative. Pain: Complains of pain in anterior aspect of right shoulder and right arm Pain currently is 8 out of 10 on a pain scale. Neuro: Level of Consciousness is awake, alert, obeys commands, Oriented to person, place, time, situation. Cardiovascular: Capillary refill < 3 seconds Patient's skin is warm and dry. Respiratory: Airway is patent Respiratory effort is even, unlabored, Respiratory pattern is regular, symmetrical. GI: No signs and/or symptoms were reported involving the gastrointestinal system. : No signs and/or symptoms were reported regarding the genitourinary system. EENT: No signs and/or symptoms were reported regarding the EENT system. Derm: Skin is intact, is healthy with good turgor, Skin is pink, warm \T\ dry. normal. Musculoskeletal: noted in R arm/shoulder Reports pain in anterior aspect of right shoulder and right arm Pain is 8 out of 10 on a pain scale. 20:11 Reassessment: spoke with patient mother with patient consent. explained plan of care al5 and that patient will need ride home after procedure completed. patient mother verbalized understanding and states that she will come up to cook pickled meat patient once we give her a call for a ride home. 21:58 Reassessment: Patient appears in no apparent distress at this time. Patient and/or bm8 family updated on plan of care and expected duration. Pain level reassessed. Patient is alert, oriented x 3, equal unlabored respirations, skin warm/dry/pink. pt p;laced in shoulder immobilizer supporting right arm Patient denies pain at this time. Patient states feeling better. Patient states symptoms have improved. Vital Signs: 18:01 BP 136 / 83; Pulse 98; Resp 17; Temp 97.6; Pulse Ox 100% ; Weight 65.77 kg; Height 5 jl7 ft. 6 in. ; Pain 7/10; 20:10 BP 132 / 88; Pulse 64; Resp 18; Pulse Ox 100% ; al5 20:30 BP 102 / 68; Pulse 50; Resp 18; Pulse Ox 100% on R/A; al5 21:00 BP 108 / 63; Pulse 51; Resp 17; Pulse Ox 100% on R/A; al5 21:58 BP 134 / 72; Pulse 50; Resp 16; Temp 97.6; Pulse Ox 97% ; Pain 0/10; bm8 18:01 Body Mass Index 23.40 (65.77 kg, 167.64 cm) jl7 18:01 Pain Scale: Adult jl7 21:58 Pain Scale: Adult bm8 [place] Coma Score: 21:58 Eye Response: spontaneous(4). Motor Response: obeys commands(6). Verbal Response: bm8 oriented(5). Total: 15. ED Course: 16:49 Patient arrived in ED. ra3 18:01 [facility] Godoy [facility]C [facility] 18:01 Alireza Guy MD is Attending Physician. dr5 18:06 Triage completed. jl7 18:06 Arm band placed on right wrist. jl7 18:37 XRAY Shoulder RIGHT 2 view In Process Unspecified. EDMS 19:23 Cecilia Hansen, MIKAYLA is Primary Nurse. al5 20:03 Patient has correct armband on for positive identification. Bed in low position. Call al5 light in reach. Side rails up X2. Provided Education on: Procedure Consent, reduction procedure, medications, discharge follow up. Procedure consent explained by staff, explained by physician, signed by patient. 20:03 No provider procedures requiring assistance completed. al5 20:13 Inserted saline lock: 20 gauge in left antecubital area, using aseptic technique. sa1 Flushed with 10 mL NS Missed attempt(s): 20 gauge in left antecubital area. Bleeding controlled, band aid applied, catheter tip intact. 21:38 Shoulder Right (2 View) XRAY In Process Unspecified. EDMS 21:58 IV discontinued, intact, bleeding controlled, No redness/swelling at site. Pressure bm8 dressing applied. Administered Medications: No medications were administered Medication: 20:04 VIS not applicable for this client. al5 Outcome: 21:42 Discharge ordered by . dr5 21:58 Discharged to home ambulatory, bm8 21:58 Condition: stable 21:58 Discharge instructions given to patient, family, Instructed on discharge instructions, follow up and referral plans. no drinking with medication, no driving heavy equipment, medication usage, safety practices, Demonstrated understanding of instructions, follow-up care, medications, 22:00 Patient left the ED. bm8 Signatures: Dispatcher [employer] EDMS Lilo Cunningham RN RN jl7 Rebecca Winston ra3 Dhaval Ferrer RN RN bm8 Cecilia Hansen RN RN al5 Mendy, sa1 Jax Godoy, ADMINISTRATIVE AIDE-C ADMINISTRATIVE AIDE-Cdr5
[2024-04-01 04:16] VITALS: TEMP 97.6
[2024-04-01 04:19] VITALS: BP 134/72; O2SAT 97
== END 2024-03-31 22:00 | disposition home or self-care (01) ==
LOC: ER 16:48
DX: M24.411 Recurrent dislocation, right shoulder (principal)
CPT/HCPCS: 99283